=== PATIENT | male | born 1955 | race Caucasian/White ===

== ENCOUNTER 2017-05-15 09:30 | Outpatient (RCR) | payer MEDICARE, MEDICAID ==
[2016-07-21 15:45] VITALS: Wt 81.6 kg
[~2017-05-15 09:30] MED LIST: ACET-2043 PO; BACL-51 PO; BISA-236 RC; CALC-83; CALC1TAB58 PO; CALC200T27 PO; CALCIUM PO; CEPH-13 PO; CHOL100058 PO; CHOL100059 PO; CHOL200038 PO; CYCL-343 PO; DALFAM10PT PO; DEXTROSE 5%(*) 100 ML BAG 100 ML IVPB PRN; ESC10 PO; ESCI20TA38 PO; ESCI20TA8 PO; FURO-45 PO; FURO40TA35 PO; GABA-490 PO; GLEEVEC PO; IBUP200C71 PO; IMAT400PT GT; IMAT400PT PO; LEVO-85 PO; LIDO700A29 TD; LIDOCAINE/SOD BICARB 8.4% SYR ID PRN; LOPE2CAP88 PO; LOR5/325 PO; LORA-633 PO; LYRICA PO; MAGN100T PO; MAGN100T2 PO; MAGN400T52 PO; MELA3TAB31 PO; MELO-207 PO; MORINGA PO; NS(*) 0.9% 100 ML BAG 100 ML IVPB PRN; OMEG500C5 PO; OMEG500C7 PO; ONDA8TAB94 PO; PAN40 PO; PANT40TA65 PO; POTA-28 PO; POTA-53 PO; POTA20PA10 PO; PRAM1TAB PO; TERB250T74 PO; VITA1CAP46 PO; VITA400T2 PO; ZOLP-358 PO; ZOLP-360 PO; [UNRECOGNIZED DRUG - CODE] PO; [UNRECOGNIZED DRUG - OTHER] CO INTRATH; [UNRECOGNIZED DRUG - OTHER] PO
[2017-05-15 09:39] VITALS: BP 137/55
[2017-05-15] MEDS ORDERED: methylPREDNIS SUCC 125 MG/2ML IVP PRN (10:00)
[2017-05-15] MEDS ORDERED: diphenhydrAMINE 50 MG/ML VIAL IVP PRN (10:00)
[2017-05-15] MEDS ORDERED: ACETAMINOPHEN 500 MG TAB PO PRN (10:00)
[2017-05-15] MEDS ORDERED: OCRELIZUMAB 300 MG/10 ML SDV 600 MG in NS(*) 0.9% 500 ML BAG 500 ML IVPB ONE (11:00)
[2017-05-24] MEDS ORDERED: SULF-198 PO (05:39)
== END 2017-08-12 ==
LOC: SPU 09:30
PROVIDERS: ATTEND Internal Medicine Hematology
DX: G35 Multiple sclerosis (principal)
CPT/HCPCS: 96365; 96366; 96375; A9270; C9494; J1200; J2930; J7040; J7050

== ENCOUNTER 2017-05-24 03:16 | Emergency (ER) | payer MEDICARE, MEDICAID ==
[2016-07-21 15:45] VITALS: Ht 172.7 cm; Wt 81.6 kg
[~2017-05-24] VITALS: Ht 172.7 cm; Wt 81.6 kg
[~2017-05-24 03:16] MED LIST changes: -DEXTROSE 5%(*) 100 ML BAG 100 ML IVPB PRN; -LIDOCAINE/SOD BICARB 8.4% SYR ID PRN; -NS(*) 0.9% 100 ML BAG 100 ML IVPB PRN
--- NOTE | 2017-05-24 03:40 | ER Report ---
History and Physical Time Seen By MD: 03:27 Hx. of Stated Complaint: LEFT BIG TOE HAS INFECTION, IT IS REDDENED AND PAINFUL. HPI/ROS CHIEF COMPLAINT: toe infection HISTORY OF PRESENT ILLNESS: This is a 62 year old male with multiple sclerosis. He has been having toe pain ever since he injured it several weeks ago. It does not seem to be healing. He has muscle spasms and had injured it during an episode of severe spasms. It does not seem to be healing. There is increased drainage from the toe and is red as well. Feet and hands are always very cold. There has been question about circulation in the past. He usually sees Lexi Thomas for his primary care. He has had severe infections in the past requiring a month in the hospital on IV antibiotics and wanted to try to get ahead of this so the same does not happen now. He has no fevers now, but felt like he might have earlier tonight. He was referred to [facility] for further evaluation by Lexi. Allergies: Coded Allergies: Penicillins (Verified Allergy, Intermediate, HIVES, 05/24/17) Home Meds Active Scripts Sulfamethoxazole/Trimet 800-160 Mg Tab (BACTRIM DS TABLET) 1 Each Tablet, 1 TAB PO Q12H, #20 TAB 0 Refills Prov:VINICIUS MANCILLA MD 05/24/17 Imatinib Mesylate (GLEEVEC) 400 Mg Tab, 400 MG PO HS for 30 Days, #30 TAB 9 Refills Prov:PAYTON MONTEMAYOR-BC, ONC 04/03/17 Pantoprazole Sodium (PANTOPRAZOLE SODIUM) 40 Mg Tablet.dr, 40 MG PO QDAY, #30 TAB.SR Prov:PAYTON MONTEMAYOR-BC, ONC 03/31/17 Reported Medications Cholecalciferol (Vitamin D3) (VITAMIN D3) 2,000 Unit Tablet, 2000 UNIT PO BID 07/20/16 Pramipexole Di-Hcl (PRAMIPEXOLE DIHYDROCHLORIDE) 1 Mg Tablet, 1 MG PO HS 07/20/16 Potassium Chloride (POTASSIUM CHLORIDE) 10 Meq Tab.er.prt, 10 MEQ PO BID Y for low potassium 07/20/16 Meloxicam (MELOXICAM) 15 Mg Tablet, 15 MG PO QDAY 07/20/16 Melatonin (MELATONIN) 3 Mg Tablet, 3 MG PO HS 07/20/16 Magnesium Citrate (MAGNESIUM CITRATE) 100 Mg Tablet, 100 MG PO DAILY 07/20/16 Furosemide (FUROSEMIDE) 20 Mg Tablet, 1 TAB PO DAILY, TAB 07/20/16 Escitalopram Oxalate (ESCITALOPRAM OXALATE) 20 Mg Tablet, 20 MG PO QDAY 07/20/16 Calcium Citrate/Vitamin D3 (Calcium Citrate +Vit D3 Tablet) 200 Mg Calcium-250 Unit Tablet 07/20/16 Reviewed Nurses Notes: Yes Hx Smoking: Yes Smoking Status: Never Smoker Exposure to Second Hand Smoke?: No Hx Substance Use Disorder: No Hx Alcohol Use: Yes Constitutional Vital Sign - Last 24 Hours 05/24/17 05/24/17 05/24/17 03:22 05:37 05:40 Temp 98.2 Pulse 84 83 Resp 16 B/P (MAP) 116/90 121/77 (92) Pulse Ox 100 90 O2 Delivery Room Air Room Air Physical Exam General: Alert, no acute distress Skin: Cool to the touch throughout the foot. The left great toe is somewhat erythematous despite this. Sore on the dorsal toe over the toenail area that has breakdown and some drainage, but no purulence noted. Musculoskeletal: Diffuse pain in the toe. Pain with palpation from the interphalangeal joint and distally. Neuro: Painful to touch, otherwise normal sensation. Cardiovascular: Capillary refill with slight slowing, about 3 seconds. Medical Decision Making Data Points Result Diagram: 05/24/1740905/24/17409 Laboratory Hematology Test 05/24/17 04:10 Red Blood Count 4.65 M/uL (4.00-5.60) Mean Corpuscular Volume 98.4 fL (80.0-96.0) Mean Corpuscular Hemoglobin 33.5 pg (26.0-33.0) Mean Corpuscular Hemoglobin Concent 34.1 g/dL (32.0-36.0) Red Cell Distribution Width 16.4 % (11.5-14.5) Mean Platelet Volume 8.3 fL (7.2-11.1) Neutrophils (%) (Auto) 72.3 % (39.4-72.5) Lymphocytes (%) (Auto) 13.0 % (17.6-49.6) Monocytes (%) (Auto) 11.1 % (4.1-12.4) Eosinophils (%) (Auto) 2.9 % (0.4-6.7) Basophils (%) (Auto) 0.7 % (0.3-1.4) Nucleated RBC Relative Count (auto) 0.1 /100WBC Neutrophils # (Auto) 5.7 K/uL (2.0-7.4) Lymphocytes # (Auto) 1.0 K/uL (1.3-3.6) Monocytes # (Auto) 0.9 K/uL (0.3-1.0) Eosinophils # (Auto) 0.2 K/uL (0.0-0.5) Basophils # (Auto) 0.1 K/uL (0.0-0.1) Nucleated RBC Absolute Count (auto) 0.00 K/uL Erythrocyte Sedimentation Rate 6 mm/HOUR (0-20) Sodium Level 139 mmol/L (137-145) Potassium Level 3.8 mmol/L (3.5-5.0) Chloride Level 104 mmol/L (98-107) Carbon Dioxide Level 26 mmol/L (22-30) Blood Urea Nitrogen 14 mg/dl (9-21) Creatinine 1.00 mg/dl (0.66-1.25) Glomerular Filtration Rate Calc > 60.0 Random Glucose 99 mg/dl (75-110) Calcium Level 8.8 mg/dl (8.4-10.2) Total Bilirubin 0.5 mg/dl (0.2-1.3) Aspartate Amino Transf (AST/SGOT) 17 U/L (0-35) Alanine Aminotransferase (ALT/SGPT) 27 U/L (0-56) Alkaline Phosphatase 95 U/L (0-126) C-Reactive Protein 1.9 mg/dl (<1.0) Total Protein 6.2 gm/dl (6.3-8.2) Albumin 3.3 g/dl (3.5-5.0) Chemistry Test 05/24/17 04:10 White Blood Count 7.8 k/uL (4.5-11.0) Red Blood Count 4.65 M/uL (4.00-5.60) Hemoglobin 15.6 g/dL (14.0-18.0) Hematocrit 45.8 % (42.0-52.0) Mean Corpuscular Volume 98.4 fL (80.0-96.0) Mean Corpuscular Hemoglobin 33.5 pg (26.0-33.0) Mean Corpuscular Hemoglobin Concent 34.1 g/dL (32.0-36.0) Red Cell Distribution Width 16.4 % (11.5-14.5) Platelet Count 309 K/uL (150-450) Mean Platelet Volume 8.3 fL (7.2-11.1) Neutrophils (%) (Auto) 72.3 % (39.4-72.5) Lymphocytes (%) (Auto) 13.0 % (17.6-49.6) Monocytes (%) (Auto) 11.1 % (4.1-12.4) Eosinophils (%) (Auto) 2.9 % (0.4-6.7) Basophils (%) (Auto) 0.7 % (0.3-1.4) Nucleated RBC Relative Count (auto) 0.1 /100WBC Neutrophils # (Auto) 5.7 K/uL (2.0-7.4) Lymphocytes # (Auto) 1.0 K/uL (1.3-3.6) Monocytes # (Auto) 0.9 K/uL (0.3-1.0) Eosinophils # (Auto) 0.2 K/uL (0.0-0.5) Basophils # (Auto) 0.1 K/uL (0.0-0.1) Nucleated RBC Absolute Count (auto) 0.00 K/uL Erythrocyte Sedimentation Rate 6 mm/HOUR (0-20) Glomerular Filtration Rate Calc > 60.0 Calcium Level 8.8 mg/dl (8.4-10.2) Total Bilirubin 0.5 mg/dl (0.2-1.3) Aspartate Amino Transf (AST/SGOT) 17 U/L (0-35) Alanine Aminotransferase (ALT/SGPT) 27 U/L (0-56) Alkaline Phosphatase 95 U/L (0-126) C-Reactive Protein 1.9 mg/dl (<1.0) Total Protein 6.2 gm/dl (6.3-8.2) Albumin 3.3 g/dl (3.5-5.0) Microbiology Microbiology Date/Time Source Procedure Growth Status 05/24/17 04:10 Blood Blood Culture - Preliminary NO GROWTH AFTER 1 DAY, REINCUBATED Resulted 05/24/17 04:00 Blood Blood Culture - Preliminary NO GROWTH AFTER 1 DAY, REINCUBATED Resulted 05/24/17 03:37 Foot Left Gram Stain - Final Resulted 05/24/17 03:37 Wound Culture - Preliminary Gram Negative Karsten Resulted EKG/Imaging Imaging INDICATION: Left great toe infection. EXAM DATE: 05/24/2017 4:12 AM COMPARISON: None available at the time of dictation. FINDINGS: 3 views left great toe. Mineralization is normal. No acute alignment abnormality or fracture. Mild osteoarthrosis. No suspicious erosive/ destructive lesion. Soft tissues appear swollen. IMPRESSION: No apparent acute osseous abnormality of the left great toe. Report Dictated By: Jose Martin Hinojosa MD at 05/24/2017 4:36 AM ED Course/Re-evaluation ED Course Normal CBC and CMP. CRP mildly elevated and normal ESR. He has no signs of osteomyelitis on x-ray. Cultures pending. Will begin Bactrim DS twice daily for 10 days and have him follow-up with [facility] as he was planning. Decision to Disposition Date: May 24, 2017 Decision to Disposition Time: 05:36 Depart Departure Latest Vital Signs Vital Signs Date Time Temp Pulse Resp B/P (MAP) Pulse Ox O2 Delivery O2 Flow Rate FiO2 05/24/17 05:40 83 90 Room Air 05/24/17 05:37 121/77 (92) 05/24/17 03:22 98.2 16 Impression: Primary Impression: Cellulitis of great toe, left Condition: Improved Disposition: HOME OR SELF-CARE Referrals: LEXI THOMAS (PCP) New Scripts Sulfamethoxazole/Trimet 800-160 Mg Tab (BACTRIM DS TABLET) 1 Each Tablet 1 TAB PO Q12H, #20 TAB 0 Refills Prov: VINICIUS MANCILLA MD 05/24/17 Patient Instructions: Cellulitis (ED) Additional Instructions: Start the antibiotic Bactrim DS twice a day for 10 days. Call [facility] for an appointment. Call on Thursday morning to arrange this for this coming week. VINICIUS MANCILLA MD May 24, 2017 03:40
[2017-05-24 04:26] LABS: PLATELET COUNT, AUTOMATED 309 K/uL (150-450)
--- NOTE | 2017-05-24 04:42 | RADIOLOGY IMAGING REPORT ---
FACILITY: PATIENT NAME: Luciano Goldman : 1955 MR: [id number] V: [id number] EXAM DATE: ORDERING PHYSICIAN: VINICIUS MANCILLA TECHNOLOGIST: Location: [facility] Patient: Luciano Goldman : 1955 Visit/Account:[id number] Date of Sevice: 05/24/2017 INDICATION: Left great toe infection. EXAM DATE: 05/24/2017 4:12 AM COMPARISON: None available at the time of dictation. FINDINGS: 3 views left great toe. Mineralization is normal. No acute alignment abnormality or fracture. Mild o steoarthrosis. No suspicious erosive/destructive lesion. Soft tissues appear swollen. IMPRESSION: No apparent acute osseous abnormality of the left great toe. Report Dictated By: Jose Martin Hinojosa MD at 05/24/2017 4:36 AM Report E-Signed By: Jose Martin Hinojosa MD at 05/24/2017 4:37 AM WSN:[id number]
[2017-05-24] MEDS ORDERED: TRIMETH/SULFA DS 160-800MG TAB PO ONE (05:30)
[2017-05-24 05:37] VITALS: BP 121/77
[2017-05-24] MEDS ORDERED: SULF-198 PO (05:39)
== END 2017-05-24 06:00 | disposition home or self-care (01) ==
LOC: ER 04:03
DX: L03.032 Cellulitis of left toe (principal)
CPT/HCPCS: 36415; 73660; 85025; 85651; 86140; 87040; 87070; 87077; 87186; 87205; 99283; A9270; 82040; 82247; 82310; 82374; 82435; 82565; 82947; 84075; 84132; 84155; 84295; 84450; 84460; 84520

== ENCOUNTER → 2017-07-10 | Outpatient (REF) | payer MEDICARE, MEDICAID ==
[2016-07-21 15:45] VITALS: BMI 27.4
[~2017-07-10] MED LIST changes: +SULF-198 PO
== END ==
LOC: ZZSTITCHES 19:49
PROVIDERS: ATTEND Physician Assistant
DX: N39.0 Urinary tract infection, site not specified (principal); B96.5 Pseudomonas (aeruginosa) (mallei) (pseudomallei) as the cause of diseases classified elsewhere
CPT/HCPCS: 87077; 87088; 87186

== ENCOUNTER → 2017-08-06 | Outpatient (REF) | payer MEDICARE, MEDICAID ==
[2016-07-21 15:45] VITALS: BMI 27.4
== END ==
LOC: ZZSTITCHES 15:53
PROVIDERS: ATTEND Physician Assistant
DX: R60.9 Edema, unspecified (principal); R06.02 Shortness of breath; Z79.899 Other long term (current) drug therapy
CPT/HCPCS: 82310; 82374; 82435; 82565; 82947; 83880; 84132; 84295; 84520

== ENCOUNTER → 2017-08-13 | Outpatient (REF) | payer MEDICARE, MEDICAID ==
[2016-07-21 15:45] VITALS: BMI 27.4
== END ==
LOC: ZZSTITCHES 17:03
PROVIDERS: ATTEND Physician Assistant
DX: R60.9 Edema, unspecified (principal)
CPT/HCPCS: 82310; 82374; 82435; 82565; 82947; 84132; 84295; 84520

== ENCOUNTER 2017-08-25 22:45 | Inpatient (IN) | payer MEDICARE, MEDICAID ==
[~2017-08-25] VITALS: Ht 172.7 cm; Wt 88.5 kg
--- NOTE | 2017-08-25 23:01 | ER Report ---
History and Physical Time Seen By MD: 23:01 Hx. of Stated Complaint: vomiting/diarrhea HPI/ROS CHIEF COMPLAINT: weakness, nausea,vomiting and diarrhea HISTORY OF PRESENT ILLNESS: This is a 62 year old male. He is having nausea, vomiting and diarrhea for the last 48 hours. He is very weak. He has MS and lives alone, usually able to transfer himself from chair to his car or to the toilet. Very weak today. Ended up falling while transferring to the toilet and was unable to pick himself up. Thinks he was down for about 4 hours. He has a DISSOLVER OPERATOR that is able to come and help him, who eventually found him. He assisted to brink him here to the hospital. Diffuse discomfort in the abdomen. he has felt hot and cold, but no known fevers. He has been unable to keep any medicines down today. No shortness of breath or cough. No chest pain. Allergies: Coded Allergies: Penicillins (Verified Allergy, Intermediate, HIVES, 08/25/17) Home Meds Active Scripts Sulfamethoxazole/Trimet 800-160 Mg Tab (BACTRIM DS TABLET) 1 Each Tablet, 1 TAB PO Q12H, #20 TAB 0 Refills Prov:VINICIUS MANCILLA MD 05/24/17 Imatinib Mesylate (GLEEVEC) 400 Mg Tab, 400 MG PO HS for 30 Days, #30 TAB 9 Refills Prov:PAYTON MONTEMAYORP-BC, ONC 04/03/17 Pantoprazole Sodium (PANTOPRAZOLE SODIUM) 40 Mg Tablet.dr, 40 MG PO QDAY, #30 TAB.SR Prov:PAYTON MONTEMAYOR [employer]BER-BC, ONC 03/31/17 Reported Medications Cholecalciferol (Vitamin D3) (VITAMIN D3) 2,000 Unit Tablet, 2000 UNIT PO BID 07/20/16 Pramipexole Di-Hcl (PRAMIPEXOLE DIHYDROCHLORIDE) 1 Mg Tablet, 1 MG PO HS 07/20/16 Potassium Chloride (POTASSIUM CHLORIDE) 10 Meq Tab.er.prt, 10 MEQ PO BID Y for low potassium 07/20/16 Meloxicam (MELOXICAM) 15 Mg Tablet, 15 MG PO QDAY 07/20/16 Melatonin (MELATONIN) 3 Mg Tablet, 3 MG PO HS 07/20/16 Magnesium Citrate (MAGNESIUM CITRATE) 100 Mg Tablet, 100 MG PO DAILY 07/20/16 Furosemide (FUROSEMIDE) 20 Mg Tablet, 1 TAB PO DAILY, TAB 07/20/16 Escitalopram Oxalate (ESCITALOPRAM OXALATE) 20 Mg Tablet, 20 MG PO QDAY 07/20/16 Calcium Citrate/Vitamin D3 (Calcium Citrate +Vit D3 Tablet) 200 Mg Calcium-250 Unit Tablet 07/20/16 Reviewed Nurses Notes: Yes Hx Smoking: Yes Smoking Status: Never Smoker Exposure to Second Hand Smoke?: No Hx Substance Use Disorder: No Hx Alcohol Use: Yes Constitutional Vital Sign - Last 24 Hours 08/25/17 08/25/17 08/25/17 08/25/17 22:50 23:00 23:15 23:30 Temp 99.4 Pulse 98 94 90 93 Resp 18 B/P (MAP) 109/72 106/73 (84) 112/68 (83) Pulse Ox 95 95 94 90 O2 Delivery Room Air 08/25/17 08/26/17 08/26/17 08/26/17 23:45 00:00 00:15 00:30 Pulse 102 ??? 93 ??? B/P (MAP) 107/57 (74) 98/65 (76) Pulse Ox 92 86 90 Physical Exam General Appearance: The patient is alert. No acute distress. Eyes: Pupils are equal, round. No pallor, injection or icterus. ENT: Mucous membranes are a little dry. Otherwise normal oral mucosa. Posterior oropharynx is normal. Has cerumen in ear canals. no erythema. Neck: Supple and non tender. Respiratory: Lungs are clear to auscultation. Cardiovascular: Regular rate and rhythm. No murmurs, gallops or rubs. Gastrointestinal: Abdomen is soft and non tender, a little distended. No rebound or guarding. Normal bowel sounds. No costovertebral angle tenderness with percussion. Neurological: Alert and oriented x3. Weak and tremulous. Skin: Warm and dry. DIFFERENTIAL DIAGNOSIS: After history and physical exam, differential diagnosis was considered for nausea, vomiting and diarrhea with history of MS, now very weak and unable to care for himself fully like he usually does. Medical Decision Making Data Points Result Diagram: 08/25/17220408/25/172204 Laboratory Hematology Test 08/25/17 22:05 08/25/17 23:05 08/25/17 23:41 Red Blood Count 4.39 M/uL (4.00-5.60) Mean Corpuscular Volume 103.1 fL (80.0-96.0) Mean Corpuscular Hemoglobin 35.8 pg (26.0-33.0) Mean Corpuscular Hemoglobin Concent 34.7 g/dL (32.0-36.0) Red Cell Distribution Width 14.5 % (11.5-14.5) Mean Platelet Volume 9.1 fL (7.2-11.1) Neutrophils (%) (Auto) 81.5 % (39.4-72.5) Lymphocytes (%) (Auto) 7.9 % (17.6-49.6) Monocytes (%) (Auto) 8.7 % (4.1-12.4) Eosinophils (%) (Auto) 1.7 % (0.4-6.7) Basophils (%) (Auto) 0.2 % (0.3-1.4) Nucleated RBC Relative Count (auto) 0.0 /100WBC Neutrophils # (Auto) 7.3 K/uL (2.0-7.4) Lymphocytes # (Auto) 0.7 K/uL (1.3-3.6) Monocytes # (Auto) 0.8 K/uL (0.3-1.0) Eosinophils # (Auto) 0.1 K/uL (0.0-0.5) Basophils # (Auto) 0.0 K/uL (0.0-0.1) Nucleated RBC Absolute Count (auto) 0.00 K/uL Sodium Level 143 mmol/L (137-145) Potassium Level 3.0 mmol/L (3.5-5.0) Chloride Level 100 mmol/L (98-107) Carbon Dioxide Level 26 mmol/L (22-30) Blood Urea Nitrogen 17 mg/dl (9-21) Creatinine 1.30 mg/dl (0.66-1.25) Glomerular Filtration Rate Calc 56.1 Random Glucose 90 mg/dl (75-110) Calcium Level 8.4 mg/dl (8.4-10.2) Magnesium Level 1.7 mg/dl (1.7-2.2) Total Bilirubin 0.7 mg/dl (0.2-1.3) Aspartate Amino Transf (AST/SGOT) 59 U/L (0-35) Alanine Aminotransferase (ALT/SGPT) 33 U/L (0-56) Alkaline Phosphatase 86 U/L (0-126) Total Protein 6.6 gm/dl (6.3-8.2) Albumin 3.7 g/dl (3.5-5.0) Total Creatine Kinase 778 U/L (55-170) Urine Color Mary Urine Clarity Cloudy Urine pH 5.0 pH (4.8-9.5) Urine Specific [place] 1.024 Urine Protein 30 mg/dL (NEGATIVE) Urine Glucose (UA) Negative mg/dL (NEGATIVE) Urine Ketones Negative mg/dL (NEGATIVE) Urine Blood Small (NEGATIVE) Urine Nitrite Negative (NEGATIVE) Urine Bilirubin Negative (NEGATIVE) Urine Urobilinogen Negative mg/dL (0.2-1.9) Urine Leukocyte Esterase Moderate (NEGATIVE) Urine RBC 34 /HPF (0-2/HPF) Urine WBC 346 /HPF (0-5/HPF) Urine Squamous Epithelial Cells None /LPF (NONE-FEW) Urine Bacteria Many /HPF (NONE-FEW) Urine Mucus Few /HPF (NONE-FEW) Chemistry Test 08/25/17 22:05 08/25/17 23:05 08/25/17 23:41 White Blood Count 8.9 k/uL (4.5-11.0) Red Blood Count 4.39 M/uL (4.00-5.60) Hemoglobin 15.7 g/dL (14.0-18.0) Hematocrit 45.2 % (42.0-52.0) Mean Corpuscular Volume 103.1 fL (80.0-96.0) Mean Corpuscular Hemoglobin 35.8 pg (26.0-33.0) Mean Corpuscular Hemoglobin Concent 34.7 g/dL (32.0-36.0) Red Cell Distribution Width 14.5 % (11.5-14.5) Platelet Count 271 K/uL (150-450) Mean Platelet Volume 9.1 fL (7.2-11.1) Neutrophils (%) (Auto) 81.5 % (39.4-72.5) Lymphocytes (%) (Auto) 7.9 % (17.6-49.6) Monocytes (%) (Auto) 8.7 % (4.1-12.4) Eosinophils (%) (Auto) 1.7 % (0.4-6.7) Basophils (%) (Auto) 0.2 % (0.3-1.4) Nucleated RBC Relative Count (auto) 0.0 /100WBC Neutrophils # (Auto) 7.3 K/uL (2.0-7.4) Lymphocytes # (Auto) 0.7 K/uL (1.3-3.6) Monocytes # (Auto) 0.8 K/uL (0.3-1.0) Eosinophils # (Auto) 0.1 K/uL (0.0-0.5) Basophils # (Auto) 0.0 K/uL (0.0-0.1) Nucleated RBC Absolute Count (auto) 0.00 K/uL Glomerular Filtration Rate Calc 56.1 Calcium Level 8.4 mg/dl (8.4-10.2) Magnesium Level 1.7 mg/dl (1.7-2.2) Total Bilirubin 0.7 mg/dl (0.2-1.3) Aspartate Amino Transf (AST/SGOT) 59 U/L (0-35) Alanine Aminotransferase (ALT/SGPT) 33 U/L (0-56) Alkaline Phosphatase 86 U/L (0-126) Total Protein 6.6 gm/dl (6.3-8.2) Albumin 3.7 g/dl (3.5-5.0) Total Creatine Kinase 778 U/L (55-170) Urine Color Mary Urine Clarity Cloudy Urine pH 5.0 pH (4.8-9.5) Urine Specific [place] 1.024 Urine Protein 30 mg/dL (NEGATIVE) Urine Glucose (UA) Negative mg/dL (NEGATIVE) Urine Ketones Negative mg/dL (NEGATIVE) Urine Blood Small (NEGATIVE) Urine Nitrite Negative (NEGATIVE) Urine Bilirubin Negative (NEGATIVE) Urine Urobilinogen Negative mg/dL (0.2-1.9) Urine Leukocyte Esterase Moderate (NEGATIVE) Urine RBC 34 /HPF (0-2/HPF) Urine WBC 346 /HPF (0-5/HPF) Urine Squamous Epithelial Cells None /LPF (NONE-FEW) Urine Bacteria Many /HPF (NONE-FEW) Urine Mucus Few /HPF (NONE-FEW) Urinalysis Test 08/25/17 23:41 Urine Color Mary Urine Clarity Cloudy Urine pH 5.0 pH (4.8-9.5) Urine Specific [place] 1.024 Urine Protein 30 mg/dL (NEGATIVE) Urine Glucose (UA) Negative mg/dL (NEGATIVE) Urine Ketones Negative mg/dL (NEGATIVE) Urine Blood Small (NEGATIVE) Urine Nitrite Negative (NEGATIVE) Urine Bilirubin Negative (NEGATIVE) Urine Urobilinogen Negative mg/dL (0.2-1.9) Urine Leukocyte Esterase Moderate (NEGATIVE) Urine RBC 34 /HPF (0-2/HPF) Urine WBC 346 /HPF (0-5/HPF) Urine Squamous Epithelial Cells None /LPF (NONE-FEW) Urine Bacteria Many /HPF (NONE-FEW) Urine Mucus Few /HPF (NONE-FEW) EKG/Imaging Imaging OBSTRUCTION SERIES: Indication: Nausea and vomiting. Technique: Supine and erect views of the abdomen and a frontal view of the chest were obtained. Comparison: None. Findings: The intestinal gas pattern is unremarkable. There is no evidence of obstruction, dilatation, or free air. No suspicious calcifications are identified. There are unremarkable postoperative changes in the lower lumbar spine. Scoliosis and degenerative changes are present in the upper lumbar spine. A neurostimulator is present in the lower thoracic spinal canal. The chest film demonstrates well-expanded and clear lungs. The heart and mediastinal contours are within normal limits. IMPRESSION: No evidence of obstruction or other acute process. Report Dictated By: Gerardo Ahumada MD at 08/25/2017 11:54 PM ED Course/Re-evaluation Clinical Indication for ER IV: Hydration, IV Access ED Course Labs were obtained and an IV was started. The patient was given a liter of normal saline. Some Zofran helped with nausea. He is feeling a little bit better. I discussed the lab results which show a urinary tract infection. I called and spoke with Dr. Alejandra who will admit the patient. We did look back at old cultures and based on old cultures showing Pseudomonas and staph, we did go ahead and choose Levaquin. Blood cultures will be obtained prior to antibiotics being started any urine culture will be obtained as well. Decision to Disposition Date: Aug 26, 2017 Decision to Disposition Time: 00:30 Depart Departure Latest Vital Signs Vital Signs Date Time Temp Pulse Resp B/P (MAP) Pulse Ox O2 Delivery O2 Flow Rate FiO2 08/26/17 00:30 ??? 98/65 (76) 08/26/17 00:15 90 08/25/17 22:50 99.4 18 Room Air Impression: Primary Impression: UTI (urinary tract infection) Additional Impressions: Weakness Hypokalemia Dehydration Condition: Condition Unchanged Disposition: Admitted from ER Referrals: LEXI GUARDADO (PCP) Problem Qualifiers Primary Impression: UTI (urinary tract infection) Urinary tract infection type: acute cystitis Hematuria presence: without hematuria Qualified Codes: N30.00 - Acute cystitis without hematuria VINICIUS MANCILLA MD Aug 25, 2017 23:01
[2017-08-25] MEDS ORDERED: NS(*) 0.9% 1000 ML BAG 1,000 ML IV ONE (23:15)
[2017-08-25] MEDS ORDERED: ONDANSETRON 4 MG/2 ML VIAL IVP ONE (23:15)
[2017-08-25 23:25] LABS: PLATELET COUNT, AUTOMATED 271 K/uL (150-450)
--- NOTE | 2017-08-26 00:06 | RADIOLOGY IMAGING REPORT ---
FACILITY: [facility] PATIENT NAME: Luciano Goldman : 1955 MR: [id number] V: [id number] EXAM DATE: ORDERING PHYSICIAN: VINICIUS MANCILLA TECHNOLOGIST: Location: [facility] Patient: Luciano Goldman : 1955 Visit/Account:[id number] Date of Sevice: 08/25/2017 OBSTRUCTION SERIES: Indication: Nausea and vomiting. Technique: Supine and erect views of the abdomen and a frontal view of the chest were obtained. Comparison: None. Findings: The intestinal gas pattern is unremarkable. There is no evidence of obstruction, dilatation , or free air. No suspicious calcifications are identified. There are unremarkable postoperative luna ges in the lower lumbar spine. Scoliosis and degenerative changes are present in the upper lumbar spi ne. A neurostimulator is present in the lower thoracic spinal canal. The chest film demonstrates well-expanded and clear lungs. The heart and mediastinal contours are wit hin normal limits. IMPRESSION: No evidence of obstruction or other acute process. Report Dictated By: Gerardo Ahumada MD at 08/25/2017 11:54 PM Report E-Signed By: Gerardo Ahumada MD at 08/26/2017 12:01 AM WSN:[id number]
[2017-08-26] MEDS ORDERED: LEVOFLOXACIN/D5W 750 MG/150 ML 150 ML IVPB ONE (00:30)
[2017-08-26 01:27] VITALS: BP 109/70
[2017-08-26] MEDS ORDERED: KCL 2 MEQ/ML 20 MEQ/10 ML VIAL 20 MEQ in NS(*) 0.9% 1000 ML BAG 1,000 ML IV PRN (02:17)
[2017-08-26] MEDS ORDERED: INFLUENZA VIRUS VAC 0.5 ML SYR IM ONLY ONE (02:20)
[2017-08-26] MEDS ORDERED: ACETAMINOPHEN 325 MG TAB PO PRN (02:20)
[2017-08-26] MEDS ORDERED: PROMETHAZINE 25 MG/ML 1 ML AMP IVP PRN (02:25)
--- NOTE | 2017-08-26 02:54 | History & Physical ---
History of Present Illness Chief Complaint Weakness History of Present Illness 62yo male with PMHx significant for MS, CML (on Gleevec), neurogenic bladder with suprapubic cath. He reports nausea, vomiting, and diarrhea for approximately 36-48 hours. He denies any abdominal pain. He has not appreciated any bloody or black emesis/stools. He reports some sensation of fever, but no chills. He denies any known exposure to questionable food/fluids. He is not aware of anyone around him with similar symptoms. He states he began to feel much weaker and was unable to do his usual transfers from his wheelchair. He fell in the bathroom this evening and was unable to get up. His home health aide found him and he was brought to the ER. His evaluation revealed possible UTI as well as dehydration and hypokalemia. He was recommended for admission. History Problems: (1) Presence of suprapubic catheter Status: Chronic (2) CML (chronic myeloid leukemia) Status: Chronic (3) Multiple sclerosis Status: Chronic (4) UTI (urinary tract infection) Status: Acute Home Meds Active Scripts Sulfamethoxazole/Trimet 800-160 Mg Tab (BACTRIM DS TABLET) 1 Each Tablet, 1 TAB PO Q12H, #20 TAB 0 Refills Prov:VINICIUS MANCILLA MD 05/24/17 Imatinib Mesylate (GLEEVEC) 400 Mg Tab, 400 MG PO HS for 30 Days, #30 TAB 9 Refills Prov:PAYTON MONTEMAYOR-JESSENIA, ONC 04/03/17 Pantoprazole Sodium (PANTOPRAZOLE SODIUM) 40 Mg Tablet.dr, 40 MG PO QDAY, #30 TAB.SR Prov:PAYTON MONTEMAYOR-JESSENIA, ONC 03/31/17 Reported Medications Cholecalciferol (Vitamin D3) (VITAMIN D3) 2,000 Unit Tablet, 2000 UNIT PO BID 07/20/16 Pramipexole Di-Hcl (PRAMIPEXOLE DIHYDROCHLORIDE) 1 Mg Tablet, 1 MG PO HS 07/20/16 Potassium Chloride (POTASSIUM CHLORIDE) 10 Meq Tab.er.prt, 10 MEQ PO BID Y for low potassium 07/20/16 Meloxicam (MELOXICAM) 15 Mg Tablet, 15 MG PO QDAY 07/20/16 Melatonin (MELATONIN) 3 Mg Tablet, 3 MG PO HS 07/20/16 Magnesium Citrate (MAGNESIUM CITRATE) 100 Mg Tablet, 100 MG PO DAILY 07/20/16 Furosemide (FUROSEMIDE) 20 Mg Tablet, 1 TAB PO DAILY, TAB 07/20/16 Escitalopram Oxalate (ESCITALOPRAM OXALATE) 20 Mg Tablet, 20 MG PO QDAY 07/20/16 Calcium Citrate/Vitamin D3 (Calcium Citrate +Vit D3 Tablet) 200 Mg Calcium-250 Unit Tablet 07/20/16 Allergies: Coded Allergies: Penicillins (Verified Allergy, Intermediate, HIVES, 08/25/17) 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 Blood clots CHILD Blood disorder CHILD No significant family history FATHER, Age:83 BROTHER OR SISTER BROTHER OR SISTER BROTHER OR SISTER CHILD CHILD Hx Smoking: No Smoking Status: Never Smoker Exposure to Second Hand Smoke?: No Tobacco Used: Smokeless Caffeine Intake: Tea, Soda Caffeine/Cups Per Day: 2 cups/day Hx Alcohol Use: Yes Alcohol Used: Beer Hx Substance Use Disorder: No History of IV Drug Use: No Review of Systems Constitutional: Fever, No Chills, No Night Sweats Neurological: Weakness Eyes: No Vision Change Cardiovascular: No Chest Pain Respiratory: No Shortness of Breath, No Cough Gastrointestinal: Nausea, Vomiting, Diarrhea, No Hematemesis, No Hematochezia, No Melena, No Abdominal Pain Exam Vital Signs Vital Signs Date Time Temp Pulse Resp B/P (MAP) Pulse Ox O2 Delivery O2 Flow Rate FiO2 08/26/17 01:27 91 Nasal Cannula 0.5 08/26/17 01:27 98.1 85 16 109/70 (83) General Appearance: Alert, Awake Neuro: Other (significant weakness and spasticity of both lower extremities) Eyes: PERRLA ENT: Oropharynx Clear Cardiovascular: Regular Rate and Rhythm Respiratory: Clear to Auscultation Chest: No Tenderness GI: Abd Soft and Non-Tender, Other (baclofen pump RLQ) : Other (suprapubic cath site is clean/no drainage) Extremities: Warm, Perfused, Edema Integumentary: Other (no obvious skin lesions) Medical Decision Making Data Points Result Diagram: 08/25/17220408/25/172204 Item Value Date Time Albumin 3.7 g/dl 08/25/172204 Total Protein 6.6 gm/dl 08/25/172204 Total Creatine Kinase 778 U/L H 08/25/172304 Alkaline Phosphatase 86 U/L 08/25/172204 Alanine Aminotransferase (ALT/SGPT) 33 U/L 08/25/172204 Aspartate Amino Transf (AST/SGOT) 59 U/L H 08/25/172204 Total Bilirubin 0.7 mg/dl 08/25/172204 Magnesium Level 1.7 mg/dl 08/25/172204 Calcium Level 8.4 mg/dl 08/25/172204 Urine Color Mary 08/25/17 2341 Urine Clarity Cloudy 08/25/17 2341 Urine pH 5.0 pH 08/25/17 2341 Urine Specific [place] 1.024 08/25/171 Urine Protein 30 mg/dL 08/25/171 Urine Glucose (UA) Negative mg/dL 08/25/171 Urine Ketones Negative mg/dL 08/25/17 2341 Urine Blood Small 08/25/171 Urine Nitrite Negative 08/25/17 2341 Urine Bilirubin Negative 08/25/171 Urine Urobilinogen Negative mg/dL 08/25/17 2341 Urine Leukocyte Esterase Moderate H 08/25/17 2341 Urine RBC 34 /HPF 08/25/17 2341 Urine WBC 346 /HPF 08/25/17 2341 Urine Squamous Epithelial Cells None /LPF 08/25/17 2341 Urine Bacteria Many /HPF H 08/25/17 2341 Urine Mucus Few /HPF 08/25/17 2341 EKG / Imaging Imaging PATIENT NAME: Luciano Goldman : 1955 MR: [id number] V: [id number] EXAM DATE: ORDERING PHYSICIAN: VINICIUS MANCILLA TECHNOLOGIST: Location: [facility] [place] Patient: Luciano Goldman : 1955 Visit/Account:[id number] Date of Sevice: 08/25/2017 OBSTRUCTION SERIES: Indication: Nausea and vomiting. Technique: Supine and erect views of the abdomen and a frontal view of the chest were obtained. Comparison: None. Findings: The intestinal gas pattern is unremarkable. There is no evidence of obstruction, dilatation, or free air. No suspicious calcifications are identified. There are unremarkable postoperative changes in the lower lumbar spine. Scoliosis and degenerative changes are present in the upper lumbar spine. A neurostimulator is present in the lower thoracic spinal canal. The chest film demonstrates well-expanded and clear lungs. The heart and mediastinal contours are within normal limits. IMPRESSION: No evidence of obstruction or other acute process. Report Dictated By: Gerardo Ahumada MD at 08/25/2017 11:54 PM Report E-Signed By: Gerardo Ahumada MD at 08/26/2017 12:01 AM [id number] Assessment and Plan Problems: (1) UTI (urinary tract infection) Status: Acute Assessment & Plan: It appears he may have an acute UTI secondary to his suprapubic cath. Cultures of urine and blood have been obtained. Based on previous culture results, he has been started on IV Levaquin. He is also due to have his cath changed. (2) Nausea, vomiting, and diarrhea Status: Acute Assessment & Plan: He may have an acute gastroenteritis vs. side effects of his Gleevec vs. related to the UTI. Will give IV antiemetics as needed and gentle IV fluids. Check stool studies. Watch closely. (3) Dehydration Status: Acute Assessment & Plan: Due to N/V/D. Will give gentle IV fluids. Watch labs. (4) Hypokalemia Status: Acute Assessment & Plan: Will replace with IV fluids. Watch labs. (5) Multiple sclerosis Status: Chronic Assessment & Plan: He appears to have an acute exacerbation most likely related to the acute problems. Will treat the UTI and GI symptoms. He has a baclofen pump in place. He has also been on Ampyra - will hold as it can be associated with UTI. Monitor closely. (6) CML (chronic myeloid leukemia) Status: Chronic Assessment & Plan: He has been on Gleevec under Dr. Buddy Sorto's care. Will hold for now as it could contribute to his GI symptoms. Venous Thromboembolism Antithrombotics Is Pt On Any Antithrombotics?: Yes Exam Sepsis Risk: No Definite Risk Problem Qualifiers (1) UTI (urinary tract infection): Urinary tract infection type: acute cystitis Hematuria presence: without hematuria Qualified Codes: N30.00 - Acute cystitis without hematuria DEBRA GLEZ MD Aug 26, 2017 02:54
[2017-08-26] MEDS ORDERED: KCL/NS* 20 MEQ/1000 ML PREMIX 1,000 ML IV ONE (03:22)
[2017-08-26 05:48] VITALS: BP 93/55
[2017-08-26 07:10] LABS: PLATELET COUNT, AUTOMATED 214 K/uL (150-450)
[2017-08-26] MEDS ORDERED: KCL/NS* 20 MEQ/1000 ML PREMIX 1,000 ML IV PRN (07:15)
[2017-08-26 07:27] VITALS: BP 110/69
[2017-08-26] MEDS ORDERED: CALCIUM CARBONATE/VITAMIN D3 PO SCH (08:00)
[2017-08-26] MEDS ORDERED: PANTOPRAZOLE SOD 40 MG TABEC PO SCH (09:00)
[2017-08-26] MEDS ORDERED: ESCITALOPRAM OXALATE 10 MG TAB PO SCH (09:00)
[2017-08-26] MEDS ORDERED: ENOXAPARIN 40 MG/0.4ML SYR SC SCH (09:00)
[2017-08-26] MEDS ORDERED: LEVO250T55 PO (10:44)
--- NOTE | 2017-08-26 10:48 | Hospitalist Depart ---
Discharge Summary Reason for Hosp/Final Diag: (1) UTI (urinary tract infection) Status: Acute Hospital Course & Plan: His urine was positive for leukocytes, but he was afebrile and his WBC was normal. He received empiric treatment with IV levofloxacin, but has now been converted to oral treatment. (2) Nausea, vomiting, and diarrhea Status: Acute Hospital Course & Plan: Resolved. (3) Dehydration Status: Acute Hospital Course & Plan: Resolved with IV fluids. (4) Hypokalemia Status: Acute Hospital Course & Plan: Improving with supplementation. (5) Multiple sclerosis Status: Chronic Hospital Course & Plan: He has a baclofen pump in place and has also been on Ampyra. (6) CML (chronic myeloid leukemia) Status: Chronic Hospital Course & Plan: He has been on Gleevec under Dr. Buddy Sorto's care. Departure Latest Vital Signs Vital Signs 08/26/17 08/26/17 05:48 07:27 Temp 97.6 Pulse 77 Resp 20 B/P (MAP) 110/69 (83) Pulse Ox 91 O2 Delivery Room Air O2 Flow Rate 0.5 Weight (Pounds): 195 Result Diagram: 08/26/1757 08/26/1757 Condition: Improved Discharge: Home, Home Health Discharge Instructions Home Meds Active Scripts Levofloxacin 250 Mg Tab (LEVAQUIN 250 MG TAB) 250 Mg Tablet, 250 MG PO QDAY, #3 TAB Prov:HARSH TOMPKINS DO 08/26/17 Imatinib Mesylate (GLEEVEC) 400 Mg Tab, 400 MG PO HS for 30 Days, #30 TAB 9 Refills Prov:PAYTON MONTEMAYOR-JESSENIA, ONC 04/03/17 Pantoprazole Sodium (PANTOPRAZOLE SODIUM) 40 Mg Tablet.dr, 40 MG PO QDAY, #30 TAB.SR Prov:PAYTON MONTEMAYOR-BC, ONC 03/31/17 Reported Medications Cholecalciferol (Vitamin D3) (VITAMIN D3) 2,000 Unit Tablet, 2000 UNIT PO BID 07/20/16 Pramipexole Di-Hcl (PRAMIPEXOLE DIHYDROCHLORIDE) 1 Mg Tablet, 1 MG PO HS 07/20/16 Potassium Chloride (POTASSIUM CHLORIDE) 10 Meq Tab.er.prt, 10 MEQ PO BID Y for low potassium 07/20/16 Meloxicam (MELOXICAM) 15 Mg Tablet, 15 MG PO QDAY 07/20/16 Melatonin (MELATONIN) 3 Mg Tablet, 3 MG PO HS 07/20/16 Magnesium Citrate (MAGNESIUM CITRATE) 100 Mg Tablet, 100 MG PO DAILY 07/20/16 Furosemide (FUROSEMIDE) 20 Mg Tablet, 1 TAB PO DAILY, TAB 07/20/16 Escitalopram Oxalate (ESCITALOPRAM OXALATE) 20 Mg Tablet, 20 MG PO QDAY 07/20/16 Calcium Citrate/Vitamin D3 (Calcium Citrate +Vit D3 Tablet) 200 Mg Calcium-250 Unit Tablet 07/20/16 Discontinued Scripts Sulfamethoxazole/Trimet 800-160 Mg Tab (BACTRIM DS TABLET) 1 Each Tablet, 1 TAB PO Q12H, #20 TAB 0 Refills Prov:VINICIUS MANCILLA MD 05/24/17 Diet: Regular Activity: As Tolerated Venous Thromboembolism Antithrombotics Is Pt On Any Antithrombotics?: Yes Problem Qualifiers (1) UTI (urinary tract infection): Urinary tract infection type: acute cystitis Hematuria presence: without hematuria Qualified Codes: N30.00 - Acute cystitis without hematuria HARSH TOMPKINS DO Aug 26, 2017 10:48
[2017-08-26 11:07] VITALS: BP 120/72
[2017-08-26 16:19] VITALS: Ht 172.7 cm; Wt 88.5 kg
[2017-08-26] MEDS ORDERED: PRAMIPEXOLE DIHYDROCHL 0.25 MG PO SCH (21:00)
[2017-08-26] MEDS ORDERED: LEVOFLOXACIN/D5W*500 MG/100 ML 100 ML IVPB SCH (23:30)
== END 2017-08-26 14:10 | disposition home health service (06) | DRG 690 ==
LOC: ER 23:16 → MED 08-26 00:41
PROVIDERS: ADMIT Internal Medicine; ATTEND Internal Medicine
DX: N30.00 Acute cystitis without hematuria (principal); C92.10 Chronic myeloid leukemia, BCR/ABL-positive, not having achieved remission; E86.0 Dehydration; E87.6 Hypokalemia; G35 Multiple sclerosis; N31.9 Neuromuscular dysfunction of bladder, unspecified; W05.0XXA Fall from non-moving wheelchair, initial encounter; Z88.0 Allergy status to penicillin; Y92.002 Bathroom of unspecified non-institutional (private) residence as the place of occurrence of the external cause; Y99.8 Other external cause status; Z99.3 Dependence on wheelchair; Z96.0 Presence of urogenital implants; Z98.1 Arthrodesis status
CPT/HCPCS: 36415; 74022; 81001; 82040; 82247; 82310; 82374; 82435; 82550; 82565; 82947; 83735; 84075; 84132; 84155; 84295; 84450; 84460; 84520; 85025; 87040; 87088; 96361; 96365; 96375; 97166; 99285; J1650; J1956; J2405; J3480; J7030

== ENCOUNTER → 2017-09-03 | Outpatient (CLI) | payer MEDICARE, MEDICAID ==
[2017-08-26 16:19] VITALS: BMI 29.6
[~2017-09-03] MED LIST changes: +LEVO250T55 PO; +MELA5TAB6 PO; +NABU-1 PO; +OMEP40CA48 PO; +[UNRECOGNIZED DRUG - CODE] IT
== END ==
LOC: LAB 11:51
PROVIDERS: ATTEND Emergency Medicine
DX: E87.6 Hypokalemia (principal); R74.8 Abnormal levels of other serum enzymes; E53.8 Deficiency of other specified B group vitamins; M81.0 Age-related osteoporosis without current pathological fracture; E66.3 Overweight
CPT/HCPCS: 36415; 82306; 82310; 82374; 82435; 82465; 82565; 82607; 82947; 83090; 83540; 83550; 83718; 83921; 84132; 84295; 84478; 84520

== ENCOUNTER → 2017-09-17 | Outpatient (CLI) | payer MEDICARE, MEDICAID ==
[2017-08-26 16:19] VITALS: BMI 29.6
[2017-09-17 14:37] LABS: PLATELET COUNT, AUTOMATED 412 K/uL (150-450)
== END ==
LOC: LAB 13:58
PROVIDERS: ATTEND Emergency Medicine
DX: D64.9 Anemia, unspecified (principal); R79.89 Other specified abnormal findings of blood chemistry; E16.2 Hypoglycemia, unspecified
CPT/HCPCS: 36415; 82010; 82310; 82374; 82435; 82565; 82947; 84132; 84206; 84295; 84520; 85025

== ENCOUNTER → 2017-09-18 | Outpatient (CLI) | payer MEDICARE, MEDICAID ==
[2017-08-26 16:19] VITALS: BMI 29.6
== END ==
LOC: LAB 09:43
PROVIDERS: ATTEND Emergency Medicine
DX: E16.2 Hypoglycemia, unspecified (principal); D64.9 Anemia, unspecified
CPT/HCPCS: 36415; 82274; 82947; 83525; 84681; 86337

== ENCOUNTER → 2017-10-07 | Outpatient (CLI) | payer MEDICARE, MEDICAID ==
[2017-08-26 16:19] VITALS: BMI 29.6
--- NOTE | 2017-10-07 16:02 | RADIOLOGY IMAGING REPORT ---
FACILITY: [facility] PATIENT NAME: Luciano Goldman : 1955 MR: [id number] V: [id number] EXAM DATE: ORDERING PHYSICIAN: JC MEEHAN TECHNOLOGIST: Location: [facility] [place] Patient: Luciano Goldman : 1955 Visit/Account:[id number] Date of Sevice: 10/07/2017 DEXA Scan Clinical history: Screening. Comparison: 08/27/2009 on the right hip and 04/11/2011 the left hip. HIP: Bone mineral density (BMD) measured in the right Total Hip region correlates with a Z-score of -2.6 a nd a T-score of -3.0. The T-score of the femoral neck is -2.7. The lower of the two T-scores is osteoporotic as defined by the World Health Organizatio n. The corresponding risk of fracture in the hip is significantly increased approximately eight old fold compared with a young adult reference population. This value has increased by 9.3 % since the p rior study. More than 5% change is considered significant. Bone mineral density (BMD) measured in the right Femoral Neck region measures 0.715 g/cm?. HIP: Bone mineral density (BMD) measured in the Left Total Hip region correlates with a Z-score of -2.7 an d a T-score of -3.1. The T-score of the femoral neck is -2.6. The lower of the two T-scores is osteoporotic as defined by the World Health Organizatio n. The corresponding risk of fracture in the hip is significantly increased approximately eight fold compared with a young adult reference population. This value has decreased by 3.2 % since the prior study. More than 5% change is considered significant. Bone mineral density (BMD) measured in the Left Femoral Neck region measures 0.738 g/cm?. IMPRESSION: 1. Right Total Hip: Osteoporotic. There has been significant increase in the bone mineral density s alexei the previous exam 2. Left Total Hip: Left. There has been osteoporotic in the bone mineral density since the previous exam. There is been no significant change in bone mineral density since the previous exam. The next DEXA scan of this patient should include the following sites: L1-L4 and bilateral hips FRAX? WHO Fracture Risk Assessment Tool link: <http://www.shef.ac.uk/FRAX/tool.jsp?[email or web address]> PLEASE NOTE: 1) The World Health Organization defines low BMD as follows: T-score Normal > -1 Osteopenia < -1 and > -2.5 Osteoporosis < -2.5 without fractures Established osteoporosis < -2.5 with fractures 2) In general, you may wish to consider: Diagnosis Treatment Follow-up DEXA Normal BMD Prevention 2-3 years Osteopenia Prevention/therapy 1-2 years Osteoporosis Therapy Yearly 3) Fracture risk estimated from the T-score is more accurate for vertebral fractures (often spontane ous) than for hip fractures. Report Dictated By: Aiden Campos MD at 10/07/2017 3:46 PM Report E-Signed By: Aiden aCmpos MD at 10/07/2017 3:58 PM [id number]
== END ==
LOC: RAD 01:20
PROVIDERS: ATTEND Emergency Medicine
DX: Z13.820 Encounter for screening for osteoporosis (principal); M81.0 Age-related osteoporosis without current pathological fracture
CPT/HCPCS: 77080

== ENCOUNTER → 2017-11-12 | Outpatient (CLI) | payer MEDICARE, MEDICAID ==
[2017-08-26 16:19] VITALS: BMI 29.6
[~2017-11-12] MED LIST changes: +CIPR-214 PO; +IBUP-136 PO; -IBUP200C71 PO
[2017-11-12 11:14] VITALS: BP 105/63
[2017-11-12 11:18] LABS: PLATELET COUNT, AUTOMATED 304 K/uL (150-450)
== END ==
LOC: SPU 07:40
PROVIDERS: ATTEND Specialist
DX: G35 Multiple sclerosis (principal)
CPT/HCPCS: 36415; 82040; 82247; 82310; 82374; 82435; 82565; 82784; 82947; 84075; 84132; 84155; 84295; 84450; 84460; 84520; 85025; 88184; 88185

== ENCOUNTER → 2017-11-12 | Outpatient (CLI) | payer MEDICARE, MEDICAID ==
[2017-08-26 16:19] VITALS: BMI 29.6
[~2017-11-12] MED LIST changes: -CIPR-214 PO; -IBUP-136 PO; +IBUP200C71 PO
== END ==
LOC: LAB 10:38
PROVIDERS: ATTEND Specialist
DX: Z02.9 Encounter for administrative examinations, unspecified (principal)

== ENCOUNTER 2017-11-16 13:00 | Outpatient (RCR) | payer MEDICARE, MEDICAID ==
[2017-08-26 16:19] VITALS: BMI 29.6
[2017-09-24 12:40] VITALS: BP 113/70
--- NOTE | 2017-09-24 17:20 | ONCOLOGY FOLLOW UP NOTE ---
EVENT DATE: September 24, 2017 DIAGNOSIS Chronic myelogenous leukemia (CML). CHIEF COMPLAINT Patient is here today for followup of his CML. ONCOLOGY HISTORY The patient is a 61-year-old male who was diagnosed for over a decade now with CML, in remission with Gleevec therapy. The patient is doing very well. He had some upset stomach from Gleevec, but patient overcame that by taking the drug at night prior to sleep, and this is helping him a lot. He was diagnosed with chronic myelogenous leukemia in 2006. He did not tolerate Tasigna in the past at 300 mg twice daily after switching from Gleevec to Tasigna because of the nausea and fluid retention, but he could not tolerate Tasigna at all, so he switched back to Gleevec and is doing fine with Gleevec and in complete molecular remission currently. HISTORY OF PRESENT ILLNESS The patient is here today for followup of his CML. He would like to discuss the issues of having stem cell transplant for his multiple sclerosis. Currently he is complaining of weakness and fatigue and neuropathic symptoms in the hands and feet from multiple sclerosis, but other than that his general condition is stable. PAST MEDICAL HISTORY 1. CML. 2. Multiple sclerosis. 3. Chronic renal insufficiency. 4. Neurogenic bladder. PAST SURGICAL HISTORY Four spinal surgeries in the past. SOCIAL HISTORY The patient is . He lives with his . He was born and raised in [place]. 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 He does not smoke. He denies any use of alcohol. FAMILY HISTORY Noncontributory. CURRENT MEDICATIONS 1. Zofran 8 mg q.12h. p.r.n. for nausea. 2. Potassium chloride 10 mEq daily. 3. Calcium citrate 200 mg daily. 4. Magnesium 100 mg daily. 5. [place] 3 fatty acids 500 mg capsule two capsules daily. 6. Tylenol 500 mg q.4-6h. p.r.n. 7. Pramipexole dihydrochloride 1 mg daily. 8. Amrix 15 mg daily. 9. Zolpidem 10 mg at bedtime. 10. Vitamin D3 at 1000 units daily. 11. Gleevec 400 mg daily. 12. Vitamin B complex one capsule daily. 13. Baclofen 2000 mcg continuous intrathecal injection. 14. Lasix 40 mg every morning. 15. Lexapro 20 mg daily. 16. Ampyra 10 mg twice daily. ALLERGIES PENICILLIN. REVIEW OF SYSTEMS CONSTITUTIONAL: No appetite or weight change. No fever, chills or sweating. No recent infection. HEENT: Ears: No tinnitus or hearing problem. Nose: No nasal discharge or epistaxis. Throat: No sore throat or mouth ulcers. Eyes: No diplopia or visual changes. RESPIRATORY: No shortness of breath. No cough, expectoration or hemoptysis. CARDIOVASCULAR: No chest pain, orthopnea, or paroxysmal nocturnal dyspnea (PND) . No edema. No palpitations. GASTROINTESTINAL: He has some upset stomach with Gleevec sometimes. GENITOURINARY: No hematuria or dysuria. MUSCULOSKELETAL: No pain in the muscles, joints or bones. NEUROLOGICAL: He has tingling and numbness in the hands and feet. HEMATOLOGIC/LYMPHATIC: He is weak, tired and fatigued. No enlarged lymph nodes. SKIN: No skin rash or lumps. PSYCHIATRIC: No anxiety or depression. PHYSICAL EXAMINATION GENERAL: Looks stable. Well-developed, well-nourished, and in no acute distress. HEENT: Head: Atraumatic. No sinus tenderness to palpation. Eyes: No icterus or conjunctivitis. Mouth and throat: No oral thrush or mucositis. NECK: Supple. No cervical or supraclavicular lymphadenopathy. LUNGS: Clear to auscultation and percussion bilaterally. HEART: Regular rate and rhythm. No gallops, murmurs, clicks or rubs. ABDOMEN: Soft and lax. No tenderness. No hepatosplenomegaly. No masses. EXTREMITIES: No cyanosis, clubbing or edema. LYMPHATICS: No peripheral lymphadenopathy. NEUROLOGICAL: He has ongoing weakness due to his multiple sclerosis. He is wheelchair bound. PSYCHIATRIC: Mood and affect appear normal. SKIN: No skin rash, bruise or purpuric eruption. DIAGNOSTIC DATA CBC showed white count 6.7, hemoglobin 15.9, hematocrit 46, platelets 412,000. ASSESSMENT 1. Chronic myelogenous leukemia, in remission on Gleevec 400 mg daily. The patient is followed by Dr. Olea, his neurologist, for multiple sclerosis. Patient also went to [place] and discussed the issue of having stem cell transplant as a treatment for his multiple sclerosis, but they recommend to be off Gleevec for at least one year prior to his procedure. Patient is here today to discuss this issue. I have talked to him about that, and I told him that I had patients before who stopped the medication, but with the first followup their PCR came back positive again for BCR/ABL transcript. I also advised the patient that sometimes the leukemia when it comes back or relapses it can be very aggressive and can go into aplastic transformation. Patient would love to take his chances. So he is planning to stop the Gleevec and we are going to monitor his transcript every three months. I am planning to see him again in three months with CBC, chem panel and quantitative BCR for BCR/ABL transcript. 2. Multiple sclerosis, chronic. Patient is planning to go for stem cell transplant as a treatment for his disease. 3. Chronic renal insufficiency with neurogenic bladder. PLAN 1. Continue followup. 2. Patient to return it three months with CBC, chem panel, quantitative PCR for BCR-ABL transcript. 3. The patient to contact us for any new concerns or complaints. FILIBERTO
[~2017-11-16 13:00] MED LIST changes: -CIPR-214 PO; +IBUP-136 PO; -IBUP200C71 PO
[2017-11-16] MEDS ORDERED: diphenhydrAMINE 50 MG/ML VIAL IVP ONE (13:45)
[2017-11-16] MEDS ORDERED: methylPREDNIS SUCC 125 MG/2ML IVP ONE (13:45)
[2017-11-16] MEDS ORDERED: ACETAMINOPHEN 500 MG TAB PO ONE (13:45)
[2017-11-16] MEDS ORDERED: DEXTROSE 5%(*) 100 ML BAG 100 ML IVPB PRN (14:00)
[2017-11-16] MEDS ORDERED: LIDOCAINE/SOD BICARB 8.4% SYR ID PRN (14:00)
[2017-11-16] MEDS ORDERED: NS(*) 0.9% 100 ML BAG 100 ML IVPB PRN (14:00)
[2017-11-16] MEDS ORDERED: OCRELIZUMAB 300 MG/10 ML SDV 600 MG in NS(*) 0.9% 500 ML BAG 500 ML IVPB ONE (14:30)
[2017-11-16 15:59] VITALS: BP 110/87
[2017-11-16 18:31] VITALS: BP 134/76
[2017-11-17] MEDS ORDERED: CIPR-214 PO (10:20)
== END 2017-12-17 ==
LOC: SPU 13:00
PROVIDERS: ATTEND Internal Medicine Hematology
DX: C92.11 Chronic myeloid leukemia, BCR/ABL-positive, in remission (principal); G35 Multiple sclerosis; N18.9 Chronic kidney disease, unspecified; N31.9 Neuromuscular dysfunction of bladder, unspecified; R53.1 Weakness; R53.83 Other fatigue; Z79.899 Other long term (current) drug therapy
CPT/HCPCS: 51702; 81001; 87077; 87088; 87186; 96365; 96366; 96367; 96375; A9270; G0463; J1200; J2350; J2930; J7040; 99212

== ENCOUNTER → 2017-11-16 | Outpatient (CLI) | payer MEDICARE, MEDICAID ==
[2017-08-26 16:19] VITALS: BMI 29.6
[~2017-11-16] MED LIST changes: +CIPR-214 PO
== END ==
LOC: SPU 11:23
PROVIDERS: ATTEND Emergency Medicine
DX: R82.99 Other abnormal findings in urine (principal); B96.1 Klebsiella pneumoniae [K. pneumoniae] as the cause of diseases classified elsewhere
CPT/HCPCS: 51702; 81001; 87077; 87088; 87186

== ENCOUNTER 2017-12-25 13:30 | Outpatient (RCR) | payer MEDICARE, MEDICAID ==
[2017-08-26 16:19] VITALS: BMI 29.6
[2017-12-18 11:17] VITALS: BP 102/66
[2017-12-18 12:09] LABS: PLATELET COUNT, AUTOMATED 308 K/uL (150-450)
[~2017-12-25 13:30] MED LIST changes: +CIPR-214 PO; -POTA20PA10 PO; +POTA20PA31 PO
[2017-12-25 13:40] VITALS: BP 99/64
--- NOTE | 2017-12-25 18:46 | [facility] ONCOLOGY NOTE ---
EVENT DATE: December 25, 2017 DIAGNOSIS Chronic myelogenous leukemia (CML). CHIEF COMPLAINT Patient is here today for followup of his CML. ONCOLOGY HISTORY The patient is a 62-year-old male who was diagnosed for over a decade now with CML, in remission with Gleevec therapy. The patient is doing very well. He had some upset stomach from Gleevec, but patient overcame that by taking the drug at night prior to sleep, and this is helping him a lot. He was diagnosed with chronic myelogenous leukemia in 2006. He did not tolerate Tasigna in the past at 300 mg twice daily after switching from Gleevec to Tasigna because of the nausea and fluid retention, but he could not tolerate Tasigna at all, so he switched back to Gleevec and is doing fine with Gleevec and in complete molecular remission currently. HISTORY OF PRESENT ILLNESS The patient is here today for followup of his chronic myelogenous leukemia. Patient had stopped his treatment with Gleevec in September 2017. He is doing fine currently. He continues to have tingling and numbness in the hands and feet. He has also nasal discharge from allergy. PAST MEDICAL HISTORY 1. CML. 2. Multiple sclerosis. 3. Chronic renal insufficiency. 4. Neurogenic bladder. PAST SURGICAL HISTORY Four spinal surgeries in the past. SOCIAL HISTORY The patient is . He lives with his . He was born and raised in [place]. 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 He does not smoke. He denies any use of alcohol. FAMILY HISTORY Noncontributory. CURRENT MEDICATIONS 1. Zofran 8 mg q.12 hours p.r.n. for nausea. 2. Potassium chloride 10 mEq daily. 3. Calcium citrate 200 mg daily. 4. Magnesium 100 mg daily. 5. Red Bud 3 fatty acids 500 mg capsule, two capsules daily. 6. Tylenol 500 mg q.4-6 hours p.r.n. 7. Pramipexole dihydrochloride 1 mg daily. 8. Amrix 15 mg daily. 9. Zolpidem 10 mg at bedtime. 10. Vitamin D3 at 1000 units daily. 11. Gleevec 400 mg daily. 12. Vitamin B complex one capsule daily. 13. Baclofen 2000 mcg continuous intrathecal injection. 14. Lasix 40 mg every morning. 15. Lexapro 20 mg daily. 16. Ampyra 10 mg twice daily. ALLERGIES PENICILLIN. REVIEW OF SYSTEMS CONSTITUTIONAL: No appetite or weight change. No fever, chills, or sweating. No recent infection. HEENT: Ears: No tinnitus or hearing problem. Nose: He has nasal discharge from allergies. Throat: No sore throat or mouth ulcers. Eyes: No diplopia or visual changes. RESPIRATORY: No shortness of breath. No cough, expectoration, or hemoptysis. CARDIOVASCULAR: No chest pain, orthopnea, or paroxysmal nocturnal dyspnea (PND) . No edema. No palpitations. GASTROINTESTINAL: He has some upset stomach with Gleevec sometimes. GENITOURINARY: No hematuria or dysuria. MUSCULOSKELETAL: No pain in the muscles, joints, or bones. NEUROLOGICAL: He has tingling and numbness in his hands and feet. HEMATOLOGIC/LYMPHATIC: He is weak, tired, and fatigued. No enlarged lymph nodes. SKIN: No skin rash or lumps. PSYCHIATRIC: No anxiety or depression. PHYSICAL EXAMINATION GENERAL: Looks stable. Well developed, well nourished, and in no acute distress. VITAL SIGNS: Blood pressure 99/64, pulse 83 per minute, respirations 16 per minute, temperature 96.9, pulse ox 93% on room air. HEENT: Head: Atraumatic. No sinus tenderness to palpation. Eyes: No icterus or conjunctivitis. Mouth and throat: No oral thrush or mucositis. NECK: Supple. No cervical or supraclavicular lymphadenopathy. LUNGS: Clear to auscultation and percussion bilaterally. HEART: Regular rate and rhythm. No gallops, murmurs, clicks, or rubs. ABDOMEN: Soft and lax. No tenderness. No hepatosplenomegaly. No masses. EXTREMITIES: No cyanosis, clubbing, or edema. LYMPHATICS: No peripheral lymphadenopathy. NEUROLOGICAL: He has ongoing weakness due to his multiple sclerosis. He is wheelchair bound. PSYCHIATRIC: Mood and affect appear normal. SKIN: No skin rash, bruise, or purpuric eruption. DIAGNOSTIC DATA CBC showed white count 8.9, hemoglobin 15.2, hematocrit 43.7, platelets 308, 000. Chem panel is totally normal. Quantitative BCR-ABL transcript showed that the transcript dropped from 10.2% to 3.4%, but his last one was on the March, so we cannot cloth classer if after stopping Gleevec in September 2017 if that is a bad or good effect so far. ASSESSMENT 1. Chronic myelogenous leukemia, on Gleevec 400 mg daily. The patient is followed by Dr. Olea, his neurologist, for multiple sclerosis. Patient went to [facility] to discuss the issue of having stem cell transplant as a treatment for his multiple sclerosis, but they recommended him to be off Gleevec for at least one year prior to his procedure. Patient stopped his treatment in September 2017. Despite the fact his BCR-ABL transcript dropped from 10.2% in March 2017 to currently 3.4% in December 2017, there are no in between levels to compare after he stopped his Gleevec. I am planning to see him again in three months with repeat CBC, chem panel, and quantitative PCR for BCR-ABL to see if his transcript is going up or down at that time. I explained that to the patient. He is agreeable with the plan of management. 2. Multiple sclerosis, chronic. Patient is waiting for stem cell transplant as a treatment for his disease. 3. Chronic renal insufficiency with neurogenic bladder. PLAN 1. Continue followup. 2. Patient to return it three months with CBC, chem panel, quantitative PCR for BCR-ABL transcript. 3. The patient to contact us for any concerns or complaints. [facility]
[2017-12-28] MEDS ORDERED: ZOLP-358 PO (03:39)
[2018-01-20] MEDS ORDERED: APIX5TAB PO (13:40)
== END 2018-03-18 ==
LOC: ONC 13:30
PROVIDERS: ATTEND Internal Medicine Hematology
DX: C92.11 Chronic myeloid leukemia, BCR/ABL-positive, in remission (principal); G35 Multiple sclerosis; N18.9 Chronic kidney disease, unspecified; N31.9 Neuromuscular dysfunction of bladder, unspecified; R53.1 Weakness; R53.83 Other fatigue; Z79.899 Other long term (current) drug therapy
CPT/HCPCS: 36415; 85025; G0463; 82040; 82247; 82310; 82374; 82435; 82565; 82947; 84075; 84132; 84155; 84295; 84450; 84460; 84520; 99212

== ENCOUNTER 2017-12-27 23:14 | Emergency (ER) | payer MEDICARE, MEDICAID ==
[2017-08-26 16:19] VITALS: Wt 83.9 kg
--- NOTE | 2017-12-27 23:25 | ER Report ---
History and Physical Time Seen By MD: 23:22 HPI/ROS CHIEF COMPLAINT: Weakness of legs and hands HISTORY OF PRESENT ILLNESS: 62-year-old male with a history of MS and CML on Gleevec discontinued 3 months ago with plans for stem cell treatment. Patient notes gradual weakness developing throughout the day. Tonight he was unable to stand, which she is normally able to do at the sink and perform his activities of daily living. He also is able to stand and transfer into a shower and bathe. His legs are so weak he is unable to stand at all. He is unable to lift his behind off of his wheelchair. He notes that he is losing strength in his hands. There still functioning. Patient states he presented with similar symptoms a year ago and was having hypoglycemic attacks as well as a urinary tract infection.Family checked his glucose at home at 162. He has an indwelling suprapubic catheter. He has a baclofen pump. Patient notes no fever , chills or sore throat. He denies shortness of breath or chest pain. He denies nausea, vomiting, diarrhea or constipation. He denies abdominal pain. He notes there is some drainage around his suprapubic catheter. He notes no leg swelling or calf pain. Patient's medical power of employment law attorney is his eldest daughter Vera Issa [phone] REVIEW OF SYSTEMS: Respiratory: No cough, no dyspnea. Cardiovascular: No chest pain, no palpitations. Gastrointestinal: No vomiting, no abdominal pain. Musculoskeletal: No back pain. Allergies: Coded Allergies: Penicillins (Verified Allergy, Intermediate, HIVES, 08/25/17) Home Meds Active Scripts Imatinib Mesylate (GLEEVEC) 400 Mg Tab, 400 MG PO HS for 30 Days, #30 TAB 9 Refills Prov:PAYTON MONTEMAYOR CYTOLOGY SUPERVISOR-BC, ONC 04/03/17 Reported Medications Zolpidem Tartrate (ZOLPIDEM TARTRATE) 10 Mg Tablet, 1 TAB PO QHS 12/28/17 Omeprazole (OMEPRAZOLE) 40 Mg Capsule.dr, 40 MG PO BID, CAP 09/03/17 Nabumetone (NABUMETONE) 500 Mg Tablet, 500 MG PO BID, #20 TAB 09/03/17 Baclofen (GABLOFEN) 50 Mcg/1 Ml Disp.syrin, 50 MCG IT 09/03/17 Dalfampridine (AMPYRA) 10 Mg Tabcr, 10 MG PO Q12H 09/03/17 Melatonin (MELATONIN) 5 Mg Tablet, 5 MG PO QHS 09/03/17 Cholecalciferol (Vitamin D3) (VITAMIN D3) 2,000 Unit Tablet, 2000 UNIT PO BID 07/20/16 Pramipexole Di-Hcl (PRAMIPEXOLE DIHYDROCHLORIDE) 1 Mg Tablet, 1 MG PO HS 07/20/16 Potassium Chloride (POTASSIUM CHLORIDE) 10 Meq Tab.er.prt, 10 MEQ PO BID Y for low potassium 07/20/16 Magnesium Citrate (MAGNESIUM CITRATE) 100 Mg Tablet, 500 MG PO DAILY 07/20/16 Furosemide (FUROSEMIDE) 20 Mg Tablet, 1-2 TAB PO DAILY, TAB 07/20/16 Escitalopram Oxalate (ESCITALOPRAM OXALATE) 20 Mg Tablet, 20 MG PO QDAY 07/20/16 Calcium Citrate/Vitamin D3 (Calcium Citrate +Vit D3 Tablet) 200 Mg Calcium-250 Unit Tablet 07/20/16 Discontinued Scripts Ciprofloxacin Hcl (CIPROFLOXACIN HCL) 500 Mg Tablet, 500 MG PO Q12H, #14 TAB Prov:JC MEEHAN MD 11/17/17 Past Medical/Surgical History PAST MEDICAL HISTORY 1. CML. 2. Multiple sclerosis. 3. Chronic renal insufficiency. 4. Neurogenic bladder. PAST SURGICAL HISTORY Four spinal surgeries in the past. SOCIAL HISTORY The patient is . He lives with his . He was born and raised in [place]. 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 He does not smoke. He denies any use of alcohol. Hx Smoking: No Smoking Status: Never Smoker Exposure to Second Hand Smoke?: No Hx Substance Use Disorder: No Hx Alcohol Use: Yes Constitutional Vital Sign - Last 24 Hours 12/27/17 12/27/17 12/27/17 12/27/17 23:24 23:29 23:31 23:59 Temp 97.9 Pulse 75 79 75 Resp 16 35 B/P (MAP) 106/77 108/64 (79) Pulse Ox 95 95 O2 Delivery Room Air 12/28/17 12/28/17 12/28/17 12/28/17 00:00 00:29 00:30 00:44 Pulse 71 71 Resp 18 18 B/P (MAP) 102/60 (74) 94/60 (71) 12/28/17 12/28/17 12/28/17 8/13/18 00:59 01:00 01:05 01:30 Pulse 74 69 Resp 18 15 B/P (MAP) 121/73 (89) 129/81 (97) Pulse Ox 94 95 12/28/17 12/28/17 12/28/17 12/28/17 01:35 01:50 01:55 02:00 Pulse 72 70 66 Resp 23 20 13 B/P (MAP) 91/52 (65) Pulse Ox 96 96 97 12/28/17 12/28/17 12/28/17 12/28/17 02:10 02:25 02:30 02:35 Pulse 61 65 64 Resp 14 14 16 B/P (MAP) 83/47 (59) Pulse Ox 98 98 98 12/28/17 12/28/17 12/28/17 12/28/17 02:50 03:00 03:05 03:20 Pulse 62 62 60 Resp 14 14 15 B/P (MAP) 85/48 (60) Pulse Ox 97 97 98 12/28/17 12/28/17 12/28/17 12/28/17 03:21 03:30 03:35 03:50 Pulse 58 57 Resp 16 13 B/P (MAP) 85/49 (61) 83/47 (59) Pulse Ox 98 99 12/28/17 12/28/17 12/28/17 04:00 04:05 04:10 Pulse 58 61 Resp 13 14 B/P (MAP) 88/49 (62) Pulse Ox 98 99 Physical Exam General Appearance: The patient is alert, has no immediate need for airway protection and no signs of toxicity. Vital signs stable, afebrile, pulse ox normal Eyes: Pupils equal and round no pallor or injection. ENT, Mouth: Mucous membranes are moist. Respiratory: There are no retractions, lungs are clear to auscultation. Cardiovascular: Regular rate and rhythm. Gastrointestinal: Abdomen is soft and non tender, no masses, bowel sounds normal. Indwelling suprapubic catheter with some erythema and purulent drainage at the site Neurological: Alert and oriented 3. Patient has a weak grasp bilaterally in his hands. He has full range of motion of his upper extremity. He is unable to lift his legs off the bed. He is able to push down with plantarflexion of his feet approximately 1/5. He is able to wiggle his toes. Skin: Warm and dry, no rashes. Musculoskeletal: Neck is supple non tender. Extremities are nontender, there is bilateral chronic-appearing, 1+ edema bilaterally DIFFERENTIAL DIAGNOSIS: After history and physical exam differential diagnosis was considered for weakness including but not limited to electrolyte abnormality , depression, anxiety, CVA, MS exacerbation, spinal cord abnormality, and infectious causes. Medical Decision Making Data Points Result Diagram: 12/27/17 2533 12/27/17 8610 Laboratory Hematology Test 12/27/17 23:57 12/28/17 00:58 Red Blood Count 4.63 M/uL (4.00-5.60) Mean Corpuscular Volume 98.0 fL (80.0-96.0) Mean Corpuscular Hemoglobin 34.6 pg (26.0-33.0) Mean Corpuscular Hemoglobin Concent 35.4 g/dL (32.0-36.0) Red Cell Distribution Width 13.4 % (11.5-14.5) Mean Platelet Volume 9.3 fL (7.2-11.1) Neutrophils (%) (Auto) 71.7 % (39.4-72.5) Lymphocytes (%) (Auto) 10.8 % (17.6-49.6) Monocytes (%) (Auto) 9.9 % (4.1-12.4) Eosinophils (%) (Auto) 6.6 % (0.4-6.7) Basophils (%) (Auto) 1.0 % (0.3-1.4) Nucleated RBC Relative Count (auto) 0.0 /100WBC Neutrophils # (Auto) 7.3 K/uL (2.0-7.4) Lymphocytes # (Auto) 1.1 K/uL (1.3-3.6) Monocytes # (Auto) 1.0 K/uL (0.3-1.0) Eosinophils # (Auto) 0.7 K/uL (0.0-0.5) Basophils # (Auto) 0.1 K/uL (0.0-0.1) Nucleated RBC Absolute Count (auto) 0.00 K/uL Sodium Level 139 mmol/L (137-145) Potassium Level 3.6 mmol/L (3.5-5.0) Chloride Level 105 mmol/L (98-107) Carbon Dioxide Level 25 mmol/L (22-30) Blood Urea Nitrogen 19 mg/dl (9-21) Creatinine 1.10 mg/dl (0.66-1.25) Glomerular Filtration Rate Calc > 60.0 Random Glucose 140 mg/dl (75-110) Lactate 2.2 mmol/L (0.7-2.1) Calcium Level 9.0 mg/dl (8.4-10.2) Total Bilirubin 0.4 mg/dl (0.2-1.3) Aspartate Amino Transf (AST/SGOT) 16 U/L (0-35) Alanine Aminotransferase (ALT/SGPT) 16 U/L (0-56) Alkaline Phosphatase 67 U/L (0-126) Total Creatine Kinase 66 U/L (55-170) Troponin I < 0.012 ng/ml Total Protein 6.0 g/dl (6.3-8.2) Albumin 3.3 g/dl (3.5-5.0) Urine Color Mary Urine Clarity Cloudy Urine pH 5.0 pH (4.8-9.5) Urine Specific [place] 1.028 Urine Protein 30 mg/dL (NEGATIVE) Urine Glucose (UA) Negative mg/dL (NEGATIVE) Urine Ketones Negative mg/dL (NEGATIVE) Urine Blood Negative (NEGATIVE) Urine Nitrite Negative (NEGATIVE) Urine Bilirubin Negative (NEGATIVE) Urine Urobilinogen 2.0 mg/dL (0.2-1.9) Urine Leukocyte Esterase Large (NEGATIVE) Urine RBC 19 /HPF (0-2/HPF) Urine WBC 349 /HPF (0-5/HPF) Urine WBC Clumps Many /HPF Urine Squamous Epithelial Cells Many /LPF (NONE-FEW) Urine Amorphous Crystals Few /HPF Urine Bacteria Few /HPF (NONE-FEW) Urine Mucus Few /HPF (NONE-FEW) Chemistry Test 12/27/17 23:57 12/28/17 00:58 White Blood Count 10.2 k/uL (4.5-11.0) Red Blood Count 4.63 M/uL (4.00-5.60) Hemoglobin 16.0 g/dL (14.0-18.0) Hematocrit 45.4 % (42.0-52.0) Mean Corpuscular Volume 98.0 fL (80.0-96.0) Mean Corpuscular Hemoglobin 34.6 pg (26.0-33.0) Mean Corpuscular Hemoglobin Concent 35.4 g/dL (32.0-36.0) Red Cell Distribution Width 13.4 % (11.5-14.5) Platelet Count 339 K/uL (150-450) Mean Platelet Volume 9.3 fL (7.2-11.1) Neutrophils (%) (Auto) 71.7 % (39.4-72.5) Lymphocytes (%) (Auto) 10.8 % (17.6-49.6) Monocytes (%) (Auto) 9.9 % (4.1-12.4) Eosinophils (%) (Auto) 6.6 % (0.4-6.7) Basophils (%) (Auto) 1.0 % (0.3-1.4) Nucleated RBC Relative Count (auto) 0.0 /100WBC Neutrophils # (Auto) 7.3 K/uL (2.0-7.4) Lymphocytes # (Auto) 1.1 K/uL (1.3-3.6) Monocytes # (Auto) 1.0 K/uL (0.3-1.0) Eosinophils # (Auto) 0.7 K/uL (0.0-0.5) Basophils # (Auto) 0.1 K/uL (0.0-0.1) Nucleated RBC Absolute Count (auto) 0.00 K/uL Glomerular Filtration Rate Calc > 60.0 Lactate 2.2 mmol/L (0.7-2.1) Calcium Level 9.0 mg/dl (8.4-10.2) Total Bilirubin 0.4 mg/dl (0.2-1.3) Aspartate Amino Transf (AST/SGOT) 16 U/L (0-35) Alanine Aminotransferase (ALT/SGPT) 16 U/L (0-56) Alkaline Phosphatase 67 U/L (0-126) Total Creatine Kinase 66 U/L (55-170) Troponin I < 0.012 ng/ml Total Protein 6.0 g/dl (6.3-8.2) Albumin 3.3 g/dl (3.5-5.0) Urine Color Mary Urine Clarity Cloudy Urine pH 5.0 pH (4.8-9.5) Urine Specific [place] 1.028 Urine Protein 30 mg/dL (NEGATIVE) Urine Glucose (UA) Negative mg/dL (NEGATIVE) Urine Ketones Negative mg/dL (NEGATIVE) Urine Blood Negative (NEGATIVE) Urine Nitrite Negative (NEGATIVE) Urine Bilirubin Negative (NEGATIVE) Urine Urobilinogen 2.0 mg/dL (0.2-1.9) Urine Leukocyte Esterase Large (NEGATIVE) Urine RBC 19 /HPF (0-2/HPF) Urine WBC 349 /HPF (0-5/HPF) Urine WBC Clumps Many /HPF Urine Squamous Epithelial Cells Many /LPF (NONE-FEW) Urine Amorphous Crystals Few /HPF Urine Bacteria Few /HPF (NONE-FEW) Urine Mucus Few /HPF (NONE-FEW) Urinalysis Test 12/28/17 00:58 Urine Color Mary Urine Clarity Cloudy Urine pH 5.0 pH (4.8-9.5) Urine Specific [place] 1.028 Urine Protein 30 mg/dL (NEGATIVE) Urine Glucose (UA) Negative mg/dL (NEGATIVE) Urine Ketones Negative mg/dL (NEGATIVE) Urine Blood Negative (NEGATIVE) Urine Nitrite Negative (NEGATIVE) Urine Bilirubin Negative (NEGATIVE) Urine Urobilinogen 2.0 mg/dL (0.2-1.9) Urine Leukocyte Esterase Large (NEGATIVE) Urine RBC 19 /HPF (0-2/HPF) Urine WBC 349 /HPF (0-5/HPF) Urine WBC Clumps Many /HPF Urine Squamous Epithelial Cells Many /LPF (NONE-FEW) Urine Amorphous Crystals Few /HPF Urine Bacteria Few /HPF (NONE-FEW) Urine Mucus Few /HPF (NONE-FEW) EKG/Imaging EKG Interpretation 12 lead EK Rhythm: normal sinus rhythm [place]: normal QRS: normal ST segments: normal, comparison to previous EKG dated 07/22/16, no significant change Imaging Results: CT scan of the head without contrast was obtained. The results of the study are HEAD W/O CONTRAST HISTORY: History of multiple sclerosis. New weakness in legs and hand. COMPARISON: Brain MR 11/05/2016. Most recent head CT 07/23/2016 and studies dating to 07/05/2008. TECHNIQUE: Axial images were obtained from the skull base to the vertex without contrast. Sagittal and coronal reformats were performed. One of the following dose optimization techniques was utilized in the performance of this exam: Automated exposure control; adjustment of the mA and/ or kV according to the patient's size; or use of an iterative reconstruction technique. Specific details can be referenced in the facility's radiology CT exam operational policy. CONTRAST: None. FINDINGS: Brain: No intracranial hemorrhage or mass. There are deep, periventricular, and subcortical white matter low attenuating lesions, compatible with provided history of multiple sclerosis, with a stable appearance compared to most recent CT. There is a stable dilated perivascular space within the right putamen. Ventricles and sulci: Sulci are prominent, compatible with mild atrophy, normal for age. Ventricular size and configuration is normal. Osseous structures: New from prior study is a minimally comminuted fracture of the anterior arch of C1, extending toward the right. There is also a nondisplaced fracture of the right posterior arch of C1. Paranasal sinuses and mastoids: There is mild to moderate mucosal thickening of the left maxillary sinus. There is a small mucous retention pseudocyst in the right maxillary sinus. There is rightward nasal septal deviation and a rightward nasal septal spur. Mastoids are clear. Orbits and soft tissues: Normal. IMPRESSION: 1. No acute intracranial abnormality. 2. Fractures of the anterior and right posterior arch of C1, new from prior study. The study was read by the radiologist. I viewed the images myself on the PACS system. Results: CT scan of the cervical spine without contrast was obtained. The results of the study are C-SPINE W/O CONTRAST HISTORY: Fracture noted on head CT performed earlier same evening. COMPARISON: No prior cervical spine studies CT. There is a cervical spine MR from 11/05/2016. TECHNIQUE: Axial images were obtained from the skull base through the upper thoracic spine. Coronal and sagittal reformatted images were obtained from the axial source data. One of the following dose optimization techniques was utilized in the performance of this exam: Automated exposure control; adjustment of the mA and/ or kV according to the patient's size; or use of an iterative reconstruction technique. Specific details can be referenced in the facility's radiology CT exam operational policy. CONTRAST: None. FINDINGS: Musculoskeletal/vertebra: As was noted on the recent head CT, there is a mildly comminuted fractures through the right anterior arch of C1 that extends to involve the medial right articular pillar (axial image 41). There is also a fracture through the right posterior arch of C1. There is 1 mm posterior and right lateral displacement of the dominant fracture fragment (axial image 44 series 3). Fractures are new since the MR cervical spine of 11/05/2016. No other fracture. There is severe degenerative disc disease at C4-5, C5-6, and C6-7, and there is milder degenerative disc disease at other levels. There is endplate sclerosis from C4-5 through C6-7. There is severe bilateral foraminal stenosis at from C3- 4 through C6-7. There is mild spinal stenosis from C3-4 through C6-7. There is severe degenerative facet disease on the left at C2-3 through C4-5 and at C7-T1 , and on the right from C2-3 through C4-5. There is 3 mm anterolisthesis of C3 on C4. There is 3 mm retrolisthesis of C5 compared to C4 and C6. There is 2 mm retrolisthesis of C6 compared to C7. There is 2 mm anterolisthesis of C7 on T1. Prevertebral soft tissues are within normal limits. There is mild pannus formation that is partially calcified at C1-2. Visualized upper chest: Normal. Soft tissues: Normal. IMPRESSION: 1. As was identified on the CT brain, there are fractures through the right anterior arch of C1 and of the right posterior arch of C1. The anterior C1 arch fracture extends to involve the medial C1 right articular pillar. No other fracture. 2. Severe degenerative changes of the cervical spine. The study was read by the radiologist. I viewed the images myself on the PACS system. ED Course/Re-evaluation Clinical Indication for ER IV: Hydration, IV Access ED Course Patient was admitted to an examination room. H&P was done. The differential diagnoses was considered. Patient with weakness of all 4 extremities. He has no trauma or neck pain. Diagnostic evaluation was undertaken. She has similar presentations from the past with exacerbation of his MS with infection. A urinalysis from his suprapubic catheter shows evidence of infection. His lactate is slightly elevated at 2.2. He is given Rocephin 1 g and urinary cultures ordered. CT scan of the head returns a cervical 1 fracture in both the anterior, posterior aspect of the cervical ring of C1. Patient with loss of personal banker strength bilaterally. Which as been progressive over the last 24 hours. Patient was aggressively medicated with fentanyl 50 g IV discomfort in his arms and legs after he was placed in a cervical collar. He continued to have pain and muscle spasms. He was medicated with Ativan 1 mg and Dilaudid 1 mg he was then placed in a soft collar, which seemed to provide more comfort and reduction of his peripheral arm and leg symptoms. A CT scan of the cervical spine shows advanced degenerative disc disease with compression of all nerve roots and the spinal canal shows spinal stenosis secondary to the stasis of multiple segments of the cervical spine. Patient's power of employment law attorney is Vera Issa his eldest daughter [phone]. Patient's previously had care lumbar spinal surgery was for by neurosurgeon, Dr. Luis Miguel Cottrell. She also sees a neurologist in [place]. Family and patient unable to recall the name. 12/28/2017 2:25:31 am case discussed with Dr. Colon neurosurgeon at [facility] who advises transfer to the trauma service and maintain the patient in a cervical collar 12/28/2017 2:48:07 am case discussed with Dr. Yuen trauma surgeon who accepts the patient for transfer to the ER at [facility] 12/28/2017 2:51:12 am case discussed with Dr. Avelino Ramirez ER attending, who also except the patient to the ER. He will contact the above of physicians. Upon the patient's arrival Decision to Disposition Date: Dec 28, 2017 Decision to Disposition Time: 02:07 Critical Care Time I spent a total of 90 minutes of critical care time in obtaining history, performing a physical exam, bedside monitoring of interventions, collecting and interpreting tests and discussion with consultants but not including time spent performing procedures. Depart Departure Latest Vital Signs Vital Signs Date Time Temp Pulse Resp B/P (MAP) Pulse Ox O2 Delivery O2 Flow Rate FiO2 12/28/17 04:10 61 14 99 12/28/17 04:00 88/49 (62) 12/27/17 23:24 97.9 Room Air Impression: Primary Impression: C1 cervical fracture Additional Impressions: Degenerative disc disease, cervical Multiple sclerosis, primary progressive Urinary tract infection CML (chronic myelocytic leukemia) Condition: Improved Disposition: XFER TO ACUTE CARE HOSPITAL Referrals: LEXI GUARDADO (PCP) Problem Qualifiers Primary Impression: C1 cervical fracture Encounter type: initial encounter Fracture type: closed Fracture morphology : unspecified fracture morphology Fracture alignment: nondisplaced Qualified Codes: S12.001A - Unspecified nondisplaced fracture of first cervical vertebra, initial encounter for closed fracture Additional Impressions: Urinary tract infection Urinary tract infection type: catheter-associated UTI Indwelling urinary catheter type: indwelling urethral catheter Encounter type: initial encounter Qualified Codes: T83.511A - Infection and inflammatory reaction due to indwelling urethral catheter, initial encounter; N39.0 - Urinary tract infection, site not specified DEBORAH COLE DO Dec 27, 2017 23:25
[2017-12-27] MEDS ORDERED: NS(*) 0.9% 1000 ML BAG 1,000 ML IV ONE (23:40)
--- NOTE | 2017-12-27 23:56 | EKG ---
FACILITY: [facility] PATIENT NAME: KAELA DUGGAN : [id number] MR: [id number] V: [id number] EXAM DATE: ORDERING PHYSICIAN: DEBORAH COLE TECHNOLOGIST: ROBIN Test Reason : WEAKNESS Blood Pressure : / mmHG Vent. Rate : 072 BPM Atrial Rate : 072 BPM P-R Int : 140 ms QRS Dur : 088 ms QT Int : 390 ms P-R-T Axes : 072 077 071 degrees QTc Int : 427 ms Normal sinus rhythm Normal ECG When compared with ECG of 22-JUL-2016 22:58, No significant change was found Confirmed by HARSH TOMPKINS ([id number]) on 12/28/2017 6:29:13 AM Referred By: Confirmed By:HARSH TOMPKINS
[2017-12-28 00:13] LABS: PLATELET COUNT, AUTOMATED 339 K/uL (150-450)
--- NOTE | 2017-12-28 00:48 | RADIOLOGY IMAGING REPORT ---
[place] [facility] [place] NAME: Luciano Goldman : 1955 MR: [id number] V: [id number] EXAM DATE: ORDERING PHYSICIAN: DEBORAH COLE TECHNOLOGIST: Location: [facility] Patient: Luciano Goldman : 1955 Visit/Account:[id number] Date of Sevice: 12/27/2017 CHEST SINGLE AP 12/27/2017 23:40 hours. HISTORY: History of multiple sclerosis. New weakness in legs and hand. COMPARISON: 07/22/2016 and studies dating to 04/01/2010. TECHNIQUE: Portable AP view of the chest. FINDINGS: Tubes/lines/hardware: None. Pulmonary: Lungs are clear. There is a small right pleural effusion, new. No pneumothorax. Cardiomediastinal: Cardiac and mediastinal silhouettes are within normal limits. Bones/soft tissues: No acute osseous abnormality. The visible abdomen is normal. IMPRESSION: 1. New small right pleural effusion. Report Dictated By: Shonda Murphy at 12/28/2017 12:41 AM Report E-Signed By: Shonda Murphy at 12/28/2017 12:43 AM WSN:[id number]
--- NOTE | 2017-12-28 00:56 | RADIOLOGY IMAGING REPORT ---
FACILITY: [facility] PATIENT NAME: Luciano Goldman : 1955 MR: [id number] V: [id number] EXAM DATE: ORDERING PHYSICIAN: DEBORAH COLE TECHNOLOGIST: Location: [facility] [place] Patient: Luciano Goldman : 1955 Visit/Account:[id number] Date of Sevice: 12/27/2017 HEAD W/O CONTRAST HISTORY: History of multiple sclerosis. New weakness in legs and hand. COMPARISON: Brain MR 11/05/2016. Most recent head CT 07/23/2016 and studies dating to 07/05/2008. TECHNIQUE: Axial images were obtained from the skull base to the vertex without contrast. Sagittal an d coronal reformats were performed. One of the following dose optimization techniques was utilized in the performance of this exam: Autom ated exposure control; adjustment of the mA and/or kV according to the patient's size; or use of an i terative reconstruction technique. Specific details can be referenced in the facility's radiology CT exam operational policy. CONTRAST: None. FINDINGS: Brain: No intracranial hemorrhage or mass. There are deep, periventricular, and subcortical white mat ter low attenuating lesions, compatible with provided history of multiple sclerosis, with a stable ap pearance compared to most recent CT. There is a stable dilated perivascular space within the right pu tamen. Ventricles and sulci: Sulci are prominent, compatible with mild atrophy, normal for age. Ventricular size and configuration is normal. Osseous structures: New from prior study is a minimally comminuted fracture of the anterior arch of C 1, extending toward the right. There is also a nondisplaced fracture of the right posterior arch of C 1. Paranasal sinuses and mastoids: There is mild to moderate mucosal thickening of the left maxillary si nus. There is a small mucous retention pseudocyst in the right maxillary sinus. There is rightward na avery septal deviation and a rightward nasal septal spur. Mastoids are clear. Orbits and soft tissues: Normal. IMPRESSION: 1. No acute intracranial abnormality. 2. Fractures of the anterior and right posterior arch of C1, new from prior study. These findings were discussed by phone with DEBORAH COLE on 12/28/2017 12:51 AM. Report Dictated By: Shonda Murphy at 12/28/2017 12:43 AM Report E-Signed By: Shonda Murphy at 12/28/2017 12:53 AM WSN:[id number]
[2017-12-28] MEDS ORDERED: fentaNYL CITR 100 MCG/2 ML AMP IVP ONE (01:05)
[2017-12-28] MEDS ORDERED: HYDROMORPHONE HCL 1 MG/ML SYRINGE IVP ONE (01:35)
[2017-12-28] MEDS ORDERED: LORazepam 1 MG TAB PO ONE (01:35)
[2017-12-28] MEDS ORDERED: LORazepam 2 MG/ML VIAL IVP ONE (01:35)
--- NOTE | 2017-12-28 01:57 | RADIOLOGY IMAGING REPORT ---
FACILITY: [facility] PATIENT NAME: Luciano Goldman : 1955 MR: [id number] V: [id number] EXAM DATE: ORDERING PHYSICIAN: DEBORAH COLE TECHNOLOGIST: Location: [facility] Patient: Luciano Goldman : 1955 Visit/Account:[id number] Date of Sevice: 12/28/2017 C-SPINE W/O CONTRAST HISTORY: Fracture noted on head CT performed earlier same evening. COMPARISON: No prior cervical spine studies CT. There is a cervical spine MR from 11/05/2016. TECHNIQUE: Axial images were obtained from the skull base through the upper thoracic spine. Coronal a nd sagittal reformatted images were obtained from the axial source data. One of the following dose optimization techniques was utilized in the performance of this exam: Autom ated exposure control; adjustment of the mA and/or kV according to the patient's size; or use of an i terative reconstruction technique. Specific details can be referenced in the facility's radiology CT exam operational policy. CONTRAST: None. FINDINGS: Musculoskeletal/vertebra: As was noted on the recent head CT, there is a mildly comminuted fractures through the right anterior arch of C1 that extends to involve the medial right articular pillar (axia l image 41). There is also a fracture through the right posterior arch of C1. There is 1 mm posterior and right lateral displacement of the dominant fracture fragment (axial image 44 series 3). Fracture s are new since the MR cervical spine of 11/05/2016. No other fracture. There is severe degenerative disc disease at C4-5, C5-6, and C6-7, and there is milder degenerative d isc disease at other levels. There is endplate sclerosis from C4-5 through C6-7. There is severe bila teral foraminal stenosis at from C3-4 through C6-7. There is mild spinal stenosis from C3-4 through C 6-7. There is severe degenerative facet disease on the left at C2-3 through C4-5 and at C7-T1 , and o n the right from C2-3 through C4-5. There is 3 mm anterolisthesis of C3 on C4. There is 3 mm retrolisthesis of C5 compared to C4 and C6. There is 2 mm retrolisthesis of C6 compared to C7. There is 2 mm anterolisthesis of C7 on T1. Prevertebral soft tissues are within normal limits. There is mild pannus formation that is partially calcified at C1-2. Visualized upper chest: Normal. Soft tissues: Normal. IMPRESSION: 1. As was identified on the CT brain, there are fractures through the right anterior arch of C1 and o f the right posterior arch of C1. The anterior C1 arch fracture extends to involve the medial C1 righ t articular pillar. No other fracture. 2. Severe degenerative changes of the cervical spine. Report Dictated By: Shonda Murphy at 12/28/2017 1:41 AM Report E-Signed By: Shonda Murphy at 12/28/2017 1:53 AM WSN:[id number]
[2017-12-28] MEDS ORDERED: cefTRIAXone 1 GM VIAL IVP ONE (02:05)
[2017-12-28] MEDS ORDERED: ZOLP-358 PO (03:39)
[2017-12-28 04:00] VITALS: BP 88/49
== END 2017-12-28 04:24 | disposition short-term general hospital (02) ==
LOC: ER 23:32
DX: S12.001A Unspecified nondisplaced fracture of first cervical vertebra, initial encounter for closed fracture (principal); N39.0 Urinary tract infection, site not specified; T83.511A Infection and inflammatory reaction due to indwelling urethral catheter, initial encounter; G35 Multiple sclerosis; C92.10 Chronic myeloid leukemia, BCR/ABL-positive, not having achieved remission
CPT/HCPCS: 70450; 71045; 72125; 81001; 82550; 83605; 84484; 85025; 87088; 93005; 96361; 96374; 96375; 99291; 99292; J0696; J1170; J2060; J3010; J7030; 82040; 82247; 82310; 82374; 82435; 82565; 82947; 84075; 84132; 84155; 84295; 84450; 84460; 84520

== ENCOUNTER → 2017-12-28 | Outpatient (CLI) | payer MEDICARE, MEDICAID ==
[2017-08-26 16:19] VITALS: BMI 29.6
== END ==
LOC: AMB 04:13
PROVIDERS: ATTEND Nurse Practitioner
DX: S12.000A Unspecified displaced fracture of first cervical vertebra, initial encounter for closed fracture (principal)
CPT/HCPCS: A0425; A0428

== ENCOUNTER → 2018-03-01 | Outpatient (CLI) | payer MEDICARE, MEDICAID ==
[2017-08-26 16:19] VITALS: BMI 29.6
[~2018-03-01] MED LIST changes: +APIX5TAB PO
[2018-03-01 15:08] LABS: PLATELET COUNT, AUTOMATED 348 K/uL (150-450)
== END ==
LOC: LAB 14:30
PROVIDERS: ATTEND Internal Medicine Nephrology
DX: I12.9 Hypertensive chronic kidney disease with stage 1 through stage 4 chronic kidney disease, or unspecified chronic kidney disease (principal); N18.3 Chronic kidney disease, stage 3 (moderate)
CPT/HCPCS: 36415; 82040; 82247; 82310; 82374; 82435; 82565; 82947; 84075; 84100; 84132; 84155; 84295; 84450; 84460; 84520; 85025

== ENCOUNTER → 2018-04-01 | Outpatient (REF) | payer MEDICARE, MEDICAID ==
[2017-08-26 16:19] VITALS: BMI 29.6
[~2018-04-01] MED LIST changes: +CIPR-344 PO
== END ==
LOC: ZZSENDIN 13:07
PROVIDERS: ATTEND Internal Medicine Nephrology
DX: I12.9 Hypertensive chronic kidney disease with stage 1 through stage 4 chronic kidney disease, or unspecified chronic kidney disease (principal); N18.2 Chronic kidney disease, stage 2 (mild)
CPT/HCPCS: 82570; 84156

== ENCOUNTER → 2018-04-01 | Outpatient (CLI) | payer MEDICARE, MEDICAID ==
[2017-08-26 16:19] VITALS: BMI 29.6
== END ==
LOC: LAB 13:52
PROVIDERS: ATTEND Emergency Medicine
DX: R82.90 Unspecified abnormal findings in urine (principal)
CPT/HCPCS: 81001; 87077; 87088; 87186

== ENCOUNTER → 2018-04-06 | Outpatient (CLI) | payer MEDICARE, MEDICAID ==
[2017-08-26 16:19] VITALS: BMI 29.6
[~2018-04-06] MED LIST changes: +FLU180SY11 IM; +META800T18 PO; +METH1TAB58 PO; +TIZA2CAP3 PO
== END ==
LOC: LAB 15:56
PROVIDERS: ATTEND Emergency Medicine
DX: M81.0 Age-related osteoporosis without current pathological fracture (principal)
CPT/HCPCS: 36415; 82306; 82310; 83970

== ENCOUNTER → 2018-04-19 | Outpatient (CLI) | payer MEDICARE, MEDICAID ==
[2017-08-26 16:19] VITALS: BMI 29.6
[~2018-04-19] MED LIST changes: +GADOBENATE 529MG/1ML 15ML VIAL IVP ONE
--- NOTE | 2018-04-19 16:27 | RADIOLOGY IMAGING REPORT ---
FACILITY: [facility] PATIENT NAME: Luciano Goldman : 1955 MR: [id number] V: [id number] EXAM DATE: [id number] ORDERING PHYSICIAN: ANA GOLDMAN TECHNOLOGIST: [place] [facility] [place] [place] : 1955 Visit/Account:[id number] Date of Sevice: 04/19/2018 EXAMINATION: MRI Brain without intravenous contrast MRI Brain with intravenous contrast HISTORY: Multiple sclerosis. COMPARISON: Brain MRI dated 11/05/2016. TECHNIQUE: Multi-planar, multi-sequence brain MRI was performed before and after IV gadolinium. CONTRAST: 15 mL of IV MultiHance FINDINGS: Brain volume: Normal. Sagittal midline structures: Negative. Ventricles: Negative. Acute ischemic changes: None. Hemorrhage: None. 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 Enhancement: Negative. [place]-white: Negative. White matter: Stable mild patchy T2/FLAIR hyperintensity in the cerebellar white matter. Stable mild to moderate patchy FLAIR hyperintensity in the periventricular, deep, and subcortical white matter. No abnormal enhancement or restricted diffusion. Vessels: Negative. Extra-axial: Negative. Calvarium / scalp: Negative. Skull base: Negative. Visualized sinuses / orbits: Rightward nasal septal deviation. Visualized upper neck: Negative. IMPRESSION: No significant change compared with 11/05/2016. Report Dictated By: Gildardo Cooper MD at 04/19/2018 4:16 PM Report E-Signed By: Gildardo Cooper MD at 04/19/2018 4:23 PM WSN:[id number]
== END ==
LOC: MRI 03:41
PROVIDERS: ATTEND Specialist
DX: G35 Multiple sclerosis (principal)
CPT/HCPCS: 70553; A9577

== ENCOUNTER → 2018-04-29 | Outpatient (CLI) | payer MEDICARE, MEDICAID ==
[2017-08-26 16:19] VITALS: BMI 29.6
[~2018-04-29] MED LIST changes: -GADOBENATE 529MG/1ML 15ML VIAL IVP ONE; +ROSU10TA5 PO
[2018-04-29 12:57] LABS: PLATELET COUNT, AUTOMATED 292 K/uL (150-450)
== END ==
LOC: LAB 12:11
PROVIDERS: ATTEND Specialist
DX: G35 Multiple sclerosis (principal); Z79.899 Other long term (current) drug therapy
CPT/HCPCS: 36415; 82040; 82247; 82310; 82374; 82435; 82565; 82784; 82947; 84075; 84132; 84155; 84295; 84450; 84460; 84520; 85025; 88184; 88185

== ENCOUNTER → 2018-05-17 | Outpatient (CLI) | payer MEDICARE, MEDICAID ==
[2017-08-26 16:19] VITALS: BMI 29.6
[~2018-05-17] MED LIST changes: +CLIN300C99 PO; +DOXY-179 PO
== END ==
LOC: LAB 11:25
PROVIDERS: ATTEND Nurse Practitioner Primary Care
DX: L03.019 Cellulitis of unspecified finger (principal)
CPT/HCPCS: 87070; 87077; 87186

== ENCOUNTER → 2018-05-19 | Outpatient (CLI) | payer MEDICARE, MEDICAID ==
[2017-08-26 16:19] VITALS: BMI 29.6
[2018-05-19 10:19] LABS: PLATELET COUNT, AUTOMATED 292 K/uL (150-450)
== END ==
LOC: LAB 10:01
PROVIDERS: ATTEND Nurse Practitioner Primary Care
DX: L03.012 Cellulitis of left finger (principal)
CPT/HCPCS: 36415; 85025

== ENCOUNTER 2018-05-31 09:52 | Outpatient (RCR) | payer MEDICARE, MEDICAID ==
[2017-08-26 16:19] VITALS: BMI 29.6
[2018-04-02 14:13] VITALS: BP 115/70
--- NOTE | 2018-04-03 19:49 | ONCOLOGY FOLLOW UP NOTE ---
EVENT DATE: April 02, 2018 DIAGNOSIS Chronic myelogenous leukemia (CML). CHIEF COMPLAINT Patient is here today for followup of his CML. ONCOLOGY HISTORY The patient is a 63-year-old male who was diagnosed for over a decade now with CML, in remission with Gleevec therapy. The patient is doing very well. He had some upset stomach from Gleevec, but patient overcame that by taking the drug at night prior to sleep, and this is helping him a lot. He was diagnosed with chronic myelogenous leukemia in 2006. He did not tolerate Tasigna in the past at 300 mg twice daily after switching from Gleevec to Tasigna because of the nausea and fluid retention, but he could not tolerate Tasigna at all, so he switched back to Gleevec and is doing fine with Gleevec and in complete molecular remission currently. HISTORY OF PRESENT ILLNESS The patient is here today for followup of his chronic myelogenous leukemia. Patient had stopped his treatment with Gleevec September 2017 because he went for stem cell therapy for his multiple sclerosis. He got patchy improvement of his multiple sclerosis. He is complaining of generalized muscle aches. He has also some nasal discharge. 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 PAST MEDICAL HISTORY 1. CML. 2. Multiple sclerosis. 3. Chronic renal insufficiency. 4. Neurogenic bladder. PAST SURGICAL HISTORY Four spinal surgeries in the past. SOCIAL HISTORY The patient is . He lives with his . He was born and raised in [place]. 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 He does not smoke. He denies any use of alcohol. FAMILY HISTORY Noncontributory. CURRENT MEDICATIONS 1. Zofran 8 mg q.12 hours p.r.n. for nausea. 2. Potassium chloride 10 mEq daily. 3. Calcium citrate 200 mg daily. 4. Magnesium 100 mg daily. 5. [place]-3 fatty acids 500 mg capsule, two capsules daily. 6. Tylenol 500 mg q.4-6 hours p.r.n. 7. Pramipexole dihydrochloride 1 mg daily. 8. Amrix 15 mg daily. 9. Zolpidem 10 mg at bedtime. 10. Vitamin D3 at 1000 units daily. 11. Gleevec 400 mg daily. 12. Vitamin B complex one capsule daily. 13. Baclofen 2000 mcg continuous intrathecal injection. 14. Lasix 40 mg every morning. 15. Lexapro 20 mg daily. 16. Ampyra 10 mg twice daily. ALLERGIES PENICILLIN. REVIEW OF SYSTEMS CONSTITUTIONAL: No appetite or weight change. No fever, chills, or sweating. No recent infection. HEENT: Ears: No tinnitus or hearing problem. Nose: He has nasal discharge. Throat: No sore throat or mouth ulcers. Eyes: No diplopia or visual changes. RESPIRATORY: No shortness of breath. No cough, expectoration, or hemoptysis. CARDIOVASCULAR: No chest pain, orthopnea, or paroxysmal nocturnal dyspnea (PND). No edema. No palpitations. GASTROINTESTINAL: No nausea or vomiting. No diarrhea or constipation. No change in bowel movements. No heartburn or swallowing difficulties. No abdominal pain. No jaundice. No hematemesis, melena, or rectal bleeding. GENITOURINARY: No hematuria or dysuria. MUSCULOSKELETAL: He has generalized muscle and joint pains. NEUROLOGIC: His neuropathy is getting better after his stem cell therapy. No headaches or convulsions. HEMATOLOGIC/LYMPHATIC: No bleeding or easy bruising. No weakness or fatigue. No enlarged lymph nodes. SKIN: No skin rash or lumps. PSYCHIATRIC: No anxiety or depression. PHYSICAL EXAMINATION GENERAL: Looks stable. Well developed, well nourished, and in no acute distress. VITAL SIGNS: Blood pressure 115/70, pulse 75 per minute, respirations 16 per minute, temperature 97.1, pulse ox 96% on room air. HEENT: Head: Atraumatic. No sinus tenderness to palpation. Eyes: No icterus or conjunctivitis. Mouth and Throat: No oral thrush or mucositis. NECK: Supple. No cervical or supraclavicular lymphadenopathy. LUNGS: Clear to auscultation and percussion bilaterally. HEART: Regular rate and rhythm. No gallops, murmurs, clicks, or rubs. ABDOMEN: Soft and lax. No tenderness. No hepatosplenomegaly. No masses. EXTREMITIES: No cyanosis, clubbing, or edema. LYMPHATICS: No peripheral lymphadenopathy. NEUROLOGIC: Conscious, alert, and oriented times three. He has weakness due to his multiple sclerosis. He is wheelchair bound, but he is feeling better after stem cell therapy. PSYCHIATRIC: Mood and affect appear normal. SKIN: No skin rash, bruise, or purpuric eruption. DIAGNOSTIC DATA CBC showed white count 9.9, hemoglobin 16.3, hematocrit 48.2%, platelets 374,000. Chem panel totally normal except chloride 108. Quantitative PCR for BCR-ABL transcript showed increase from 3.4% to 37.68%. ASSESSMENT 1. Chronic myelogenous leukemia, on Gleevec 400 mg daily before. Patient stopped his treatment in September 2017 to go for stem cell therapy for his multiple sclerosis, and the patient received three infusions with much improvement of his multiple sclerosis, but unfortunately, his quantitative PCR for BCR-ABL transcript increased from 3.4% to 37.68%. I advised the patient to resume back Gleevec at 400 mg daily because with the relapse of his chronic myelogenous leukemia, he may go into blastic crisis, and he may develop acute leukemia which would be very difficult to control. Patient is going to check with his neurologist, Dr. Olea, to see if he would be able to have Gleevec now or not. I am planning to see him again in three months from now with CBC, chemistry panel, and quantitative PCR for BCR-ABL transcript. 2. Multiple sclerosis, chronic. It is getting better after stem cell therapy. 3. Chronic renal insufficiency with neurogenic bladder. PLAN 1. Gleevec 400 mg daily. 2. Patient to return in three months with CBC, chem panel, and quantitative PCR for BCR-ABL transcript. 3. Patient to contact us for any new concern or complaints. [facility]
[2018-05-24 09:50] VITALS: BP 98/67
[~2018-05-31 09:52] MED LIST changes: +DEXTROSE 5%(*) 100 ML BAG 100 ML IVPB PRN; +LIDOCAINE/SOD BICARB 8.4% SYR ID PRN; +NS(*) 0.9% 100 ML BAG 100 ML IVPB PRN
[2018-05-31 09:58] VITALS: BP 101/72
[2018-05-31] MEDS ORDERED: ACETAMINOPHEN 500 MG TAB PO PRN (11:05)
[2018-05-31] MEDS ORDERED: OCRELIZUMAB 300 MG/10 ML SDV 600 MG in NS(*) 0.9% 500 ML BAG 500 ML IVPB ONE (11:05)
[2018-05-31] MEDS ORDERED: methylPREDNIS SUCC 125 MG/2ML IVP PRN (11:10)
[2018-05-31] MEDS ORDERED: diphenhydrAMINE 50 MG/ML VIAL IVP PRN (11:10)
== END 2018-06-22 ==
LOC: SPU 09:52
PROVIDERS: ATTEND Internal Medicine Hematology
DX: C92.90 Myeloid leukemia, unspecified, not having achieved remission (principal); G35 Multiple sclerosis; N18.3 Chronic kidney disease, stage 3 (moderate); N31.9 Neuromuscular dysfunction of bladder, unspecified; R53.1 Weakness; R53.83 Other fatigue; Z79.899 Other long term (current) drug therapy
CPT/HCPCS: 36415; 96375; 96413; 96415; A9270; G0463; J1200; J2350; J2930; J7040; J7050; 82040; 82247; 82310; 82374; 82435; 82565; 82947; 84075; 84132; 84155; 84295; 84450; 84460; 84520; 85027; 99212

== ENCOUNTER → 2018-06-28 | Outpatient (CLI) | payer MEDICARE, MEDICAID ==
[2017-08-26 16:19] VITALS: BMI 29.6
[~2018-06-28] MED LIST changes: -DEXTROSE 5%(*) 100 ML BAG 100 ML IVPB PRN; -LIDOCAINE/SOD BICARB 8.4% SYR ID PRN; -NS(*) 0.9% 100 ML BAG 100 ML IVPB PRN
== END ==
LOC: LAB 13:39
PROVIDERS: ATTEND Emergency Medicine
DX: R82.90 Unspecified abnormal findings in urine (principal)
CPT/HCPCS: 81001

== ENCOUNTER 2018-07-09 12:58 | Outpatient (RCR) | payer MEDICARE, MEDICAID ==
[2017-08-26 16:19] VITALS: BMI 29.6
[2018-06-28 15:38] LABS: PLATELET COUNT, AUTOMATED 354 K/uL (150-450)
[2018-07-09 13:13] VITALS: BP 116/73
--- NOTE | 2018-07-09 18:26 | [facility] ONCOLOGY NOTE ---
EVENT DATE: July 09, 2018 DIAGNOSIS Chronic myelogenous leukemia (CML). CHIEF COMPLAINT Patient is here today for followup of his CML. ONCOLOGY HISTORY The patient is a 63-year-old male who was diagnosed for over a decade now with CML, in remission with Gleevec therapy. The patient is doing very well. He had some upset stomach from Gleevec, but patient overcame that by taking the drug at night prior to sleep, and this is helping him a lot. He was diagnosed with chronic myelogenous leukemia in 2006. He did not tolerate Tasigna in the past at 300 mg twice daily after switching from Gleevec to Tasigna because of the nausea and fluid retention, but he could not tolerate Tasigna at all, so he switched back to Gleevec and is doing fine with Gleevec and in complete molecular remission currently. HISTORY OF PRESENT ILLNESS Patient is here today for followup of his chronic myelogenous leukemia. Patient stopped his treatment with Gleevec September 2017 because he went for stem cell therapy for his multiple sclerosis. He got some improvement in his multiple sclerosis after that procedure. He is currently complaining of cough with expectoration. He has some pain in the back and knees. He has tingling and numbness in the fingers and toes. PAST MEDICAL HISTORY 1. CML. 2. Multiple sclerosis. 3. Chronic renal insufficiency. 4. Neurogenic bladder. PAST SURGICAL HISTORY Four spinal surgeries in the past. SOCIAL HISTORY The patient is . He lives with his . He was born and raised in [place]. 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 He does not smoke. He denies any use of alcohol. FAMILY HISTORY Noncontributory. CURRENT MEDICATIONS 1. Zofran 8 mg q.12 hours p.r.n. for nausea. 2. Potassium chloride 10 mEq daily. 3. Calcium citrate 200 mg daily. 4. Magnesium 100 mg daily. 5. [place]-3 fatty acids 500 mg capsule, two capsules daily. 6. Tylenol 500 mg q.4-6 hours p.r.n. 7. Pramipexole dihydrochloride 1 mg daily. 8. Amrix 15 mg daily. 9. Zolpidem 10 mg at bedtime. 10. Vitamin D3 at 1000 units daily. 11. Gleevec 400 mg daily. 12. Vitamin B complex one capsule daily. 13. Baclofen 2000 mcg continuous intrathecal injection. 14. Lasix 40 mg every morning. 15. Lexapro 20 mg daily. 16. Ampyra 10 mg twice daily. ALLERGIES PENICILLIN. REVIEW OF SYSTEMS CONSTITUTIONAL: No appetite or weight change. No fever, chills, or sweating. No recent infection. HEENT: Ears: No tinnitus or hearing problem. Nose: No nasal discharge or epistaxis. Throat: No sore throat or mouth ulcers. Eyes: No diplopia or visual changes. RESPIRATORY: No shortness of breath. Patient has cough with expectoration. No hemoptysis. CARDIOVASCULAR: No chest pain, orthopnea, or paroxysmal nocturnal dyspnea (PND). No edema. No palpitations. GASTROINTESTINAL: No nausea or vomiting. No diarrhea or constipation. No change in bowel movements. No heartburn or swallowing difficulties. No abdominal pain. No jaundice. No hematemesis, melena, or rectal bleeding. GENITOURINARY: No hematuria or dysuria. MUSCULOSKELETAL: He has pain in the back and knees. NEUROLOGICAL: He has tingling and numbness in the fingers and toes. No headaches or convulsions. HEMATOLOGIC/LYMPHATIC: No bleeding or easy bruising. No weakness or fatigue. No enlarged lymph nodes. SKIN: No skin rash or lumps. PSYCHIATRIC: No anxiety or depression. PHYSICAL EXAMINATION GENERAL: Looks stable. Well developed, well nourished, and in no acute distress. VITAL SIGNS: Blood pressure 116/73, pulse 71 per minute, respirations 16 per minute, temperature 97.8, pulse ox 97% on room air. HEENT: Head: Atraumatic. No sinus tenderness to palpation. Eyes: No icterus or conjunctivitis. Mouth and Throat: No oral thrush or mucositis. NECK: Supple. No cervical or supraclavicular lymphadenopathy. LUNGS: Clear to auscultation and percussion bilaterally. HEART: Regular rate and rhythm. No gallops, murmurs, clicks, or rubs. ABDOMEN: Soft and lax. No tenderness. No hepatosplenomegaly. No masses. EXTREMITIES: No cyanosis, clubbing, or edema. LYMPHATICS: No peripheral lymphadenopathy. NEUROLOGICAL: He is conscious, alert, and oriented times three. He has weakness due to his multiple sclerosis. He is wheelchair bound. PSYCHIATRIC: Mood and affect appear normal. SKIN: No skin rash, bruise, or purpuric eruption. DIAGNOSTIC DATA CBC showed white count 7.4, hemoglobin 17, hematocrit 48.5, platelets 354,000. Chem panel totally normal except chloride 109 and creatinine 1.3. Quantitative PCR for BCR-ABL rearrangement showed improvement in the level after resuming Gleevec. It dropped from 37.66% to 0.73%. ASSESSMENT 1. Chronic myelogenous leukemia, on Gleevec 400 mg daily. Patient stopped his Gleevec in September 2017 to go for stem cell therapy for his multiple sclerosis, and the patient received three infusions with improvement of his multiple sclerosis, but unfortunately, his quantitative PCR for BCR-ABL transcript increased from 3.4% to 37.68%. Patient was put back on Gleevec in March at 400 mg daily, and his current quantitative PCR showed good response, and the PCR-ABL transcript dropped from 37.68% to 0.73%. I am planning to continue Gleevec therapy at 400 mg daily. I will see him in three months with CBC, chemistry panel, and quantitative PCR for PCR-ABL transcript. 2. Multiple sclerosis, chronic. It is getting better after stem cell therapy. 3. Chronic renal insufficiency with neurogenic bladder. PLAN 1. Gleevec 400 mg daily. 2. Patient to return in three months with CBC, chem panel, and quantitative PCR for BCR-ABL transcript. 3. Patient to contact us for any new concern or complaints. [facility]
[2018-07-13] MEDS ORDERED: METH1TAB58 PO (14:37)
[2018-07-13] MEDS ORDERED: LEVO750T44 PO (16:19)
[2018-07-15] MEDS ORDERED: APIX5TAB PO (16:26)
[2018-07-19] MEDS ORDERED: POTA-53 PO (13:29)
[2018-07-19] MEDS ORDERED: LEVO750T44 PO (17:44)
[2018-07-27] MEDS ORDERED: FURO-45 PO (09:31)
[2018-07-27] MEDS ORDERED: FLUC200T52 PO (09:56)
[2018-08-13] MEDS ORDERED: NITR-57 PO (10:18)
[2018-08-25] MEDS ORDERED: POTA-53 PO (14:24)
[2018-08-25] MEDS ORDERED: FURO-45 PO (14:24)
[2018-09-01] MEDS ORDERED: CALC-640 PO (11:51)
[2018-09-01] MEDS ORDERED: ASCO-182 PO (11:53)
[2018-09-01] MEDS ORDERED: NABU-1 PO (11:53)
[2018-09-01] MEDS ORDERED: CYAN500T38 PO (11:53)
[2018-09-01] MEDS ORDERED: OCRE300V IV (12:10)
[2018-09-02] MEDS ORDERED: POTA-53 PO (10:54)
[2018-09-02] MEDS ORDERED: FURO-45 PO (10:54)
== END 2018-10-03 ==
LOC: ONC 12:58
PROVIDERS: ATTEND Internal Medicine Hematology
DX: C92.11 Chronic myeloid leukemia, BCR/ABL-positive, in remission (principal); G35 Multiple sclerosis; N18.3 Chronic kidney disease, stage 3 (moderate); M54.9 Dorsalgia, unspecified; Z79.899 Other long term (current) drug therapy
CPT/HCPCS: 36415; G0463; 82040; 82247; 82310; 82374; 82435; 82565; 82947; 84075; 84132; 84155; 84295; 84450; 84460; 84520; 85025; 99212

== ENCOUNTER → 2018-07-13 | Outpatient (REF) | payer MEDICARE, MEDICAID ==
[2017-08-26 16:19] VITALS: BMI 29.6
[~2018-07-13] MED LIST changes: +LEVO750T44 PO
== END ==
LOC: ZZSENDIN 14:56
PROVIDERS: ATTEND Emergency Medicine
DX: N39.0 Urinary tract infection, site not specified (principal)
CPT/HCPCS: 81001

== ENCOUNTER 2018-07-19 15:07 | Emergency (ER) | payer MEDICARE, MEDICAID ==
[2017-08-26 16:19] VITALS: BMI 29.6
[~2018-07-19 15:07] MED LIST changes: -FLUC200T52 PO
--- NOTE | 2018-07-19 15:16 | ER Report ---
History and Physical Time Seen By MD: 15:16 HPI/ROS CHIEF COMPLAINT: Urinary symptoms HISTORY OF PRESENT ILLNESS: This is a 63-year-old male presents to the emergency department via EMS for urinary symptoms. The patient has a history of MS, gabby quent urinary tract infections, has been working with his primary care provider for chronic UTIs, finished course of Levaquin yesterday for UTI. He does have a suprapubic catheter that is changed twice a month, this current catheter was changed last Thursday. Patient also complaints of double vision, he states this is happened several times over the last several weeks. He also states that the double vision seems to coincide with his urinary symptoms, he thinks this does exacerbate the MS causing the double vision. 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 No chest pain or shortness of breath. No fevers however he does have aches in his joints. No rashes. Denies headache. REVIEW OF SYSTEMS: Constitutional: As above. Eyes: No discharge. ENT: No sore throat. Cardiovascular: No chest pain, no palpitations. Respiratory: No cough, no shortness of breath. Gastrointestinal: No abdominal pain, no vomiting. Genitourinary: As above. Musculoskeletal: No back pain. Skin: No rashes. Neurological: As above. Allergies: Coded Allergies: Penicillins (Verified Allergy, Intermediate, HIVES, 08/25/17) Home Meds Active Scripts Levofloxacin 750 Mg Tab (LEVAQUIN 750 MG TAB) 750 Mg Tablet, 750 MG PO QDAY for 4 Days, #4 TAB 0 Refills Prov:DEANDRA CORBIN ENGINEER TECHNICAL STAFF-BC 07/19/18 Potassium Chloride (POTASSIUM CHLORIDE) 10 Meq Tab.er.prt, 10 MEQ PO BID, #180 TAB 3 Refills Prov:JC MEEHAN MD 07/19/18 Apixaban (ELIQUIS) 5 Mg Tablet, 5 MG PO BID, #180 TAB 3 Refills Prov:JC MEEHAN MD 07/15/18 Levofloxacin 750 Mg Tab (LEVAQUIN 750 MG TAB) 750 Mg Tablet, 750 MG PO DAILY, #5 TAB 0 Refills Prov:JC MEEHAN MD 07/13/18 Methenamine Hippurate (METHENAMINE HIPPURATE) 1 Gm Tablet, 1 GM PO DAILY for UTI for 30 Days, #30 CAP 6 Refills Take one pill by mouth daily with vitamin C Prov:JC MEEHAN MD 07/13/18 Meloxicam (MELOXICAM) 15 Mg Tablet, 15 MG PO QDAY, #90 TAB 3 Refills Prov:JC MEEHAN MD 05/27/18 Doxycycline Hyclate (DOXYCYCLINE HYCLATE) 100 Mg Tablet, 100 MG PO BID, #20 TAB Prov:AMERICO CRAFT MD 05/20/18 Clindamycin Hcl (CLINDAMYCIN HCL) 300 Mg Capsule, 1 TAB PO TID for 10 Days, #30 CAPSULE 0 Refills Prov:EUN GURROLA DNP, ENGINEER TECHNICAL STAFF-BC 05/17/18 Rosuvastatin Calcium (Rosuvastatin Calcium) 10 Mg Tablet, 1 TAB PO DAILY, #30 TAB 11 Refills Prov:JC MEEHAN MD 04/28/18 Reported Medications Imatinib Mesylate (GLEEVEC) 400 Mg Tab, 400 MG PO DAILY, TAB 04/05/18 Zolpidem Tartrate (ZOLPIDEM TARTRATE) 10 Mg Tablet, 1 TAB PO QHS 12/28/17 Omeprazole (OMEPRAZOLE) 40 Mg Capsule.dr, 40 MG PO BID, CAP 09/03/17 Baclofen (GABLOFEN) 50 Mcg/1 Ml Disp.syrin, 50 MCG IT 09/03/17 Dalfampridine (AMPYRA) 10 Mg Tabcr, 10 MG PO Q12H 09/03/17 Melatonin (MELATONIN) 5 Mg Tablet, 5 MG PO QHS 09/03/17 Cholecalciferol (Vitamin D3) (VITAMIN D3) 2,000 Unit Tablet, 2000 UNIT PO BID 07/20/16 Pramipexole Di-Hcl (PRAMIPEXOLE DIHYDROCHLORIDE) 1 Mg Tablet, 1 MG PO HS 07/20/16 Magnesium Citrate (MAGNESIUM CITRATE) 100 Mg Tablet, 500 MG PO DAILY 07/20/16 Furosemide (FUROSEMIDE) 20 Mg Tablet, 1-2 TAB PO DAILY, TAB 07/20/16 Escitalopram Oxalate (ESCITALOPRAM OXALATE) 20 Mg Tablet, 20 MG PO QDAY 07/20/16 Calcium Citrate/Vitamin D3 (Calcium Citrate +Vit D3 Tablet) 200 Mg Calcium-250 Unit Tablet 07/20/16 Discontinued Scripts Sulfamethoxazole/Trimet 800-160 Mg Tab (BACTRIM DS TABLET) 1 Each Tablet, 1 TAB PO Q12H, #14 TAB Prov:JC MEEHAN MD 06/28/18 Tizanidine Hcl (TIZANIDINE HCL) 2 Mg Capsule, 2 MG PO TID for Muscle Relaxant, #20 CAPSULE Prov:JC MEEHAN MD 04/07/18 Past Medical/Surgical History The patient has a past medical and surgical history of MS, headaches, pulmonary emboli, pneumonia, diverticulitis, colonoscopy, vasectomy, uric tract infection, neurogenic bladder, suprapubic catheter, arthritis, back surgery with fusion, chronic back pain, leukemia. Reviewed Nurses Notes: Yes Hx Smoking: No Smoking Status: Never Smoker Exposure to Second Hand Smoke?: No Hx Substance Use Disorder: No Hx Alcohol Use: Yes Constitutional Vital Sign - Last 24 Hours 07/19/18 07/19/18 07/19/18 07/19/18 15:18 16:00 16:30 17:00 Temp 97.9 Pulse 74 75 81 66 Resp 18 B/P (MAP) 119/74 110/62 (78) 98/68 (78) 93/57 (69) Pulse Ox 92 91 92 89 O2 Delivery Room Air 07/19/18 07/19/18 17:30 17:30 Pulse 62 62 B/P (MAP) 94/56 (69) 94/56 (69) Pulse Ox 91 91 Physical Exam General Appearance: The patient is alert, has no immediate need for airway protection and no signs of toxicity. Eyes: Pupils equal and round no pallor or injection. ENT, Mouth: Mucous membranes are moist. Respiratory: There are no retractions, lungs are clear to auscultation. Cardiovascular: Regular rate and rhythm, no murmurs, clicks or rubs. Gastrointestinal: Abdomen is soft and non tender, no masses, hypoactive bowel sounds. Neurological: Alert and oriented 4. At baseline for moving extremities consistent with history of MS, no focal neuro deficits. Skin: Warm and dry, no rashes. Suprapubic catheter site intact, no erythema or skin breakdown. Musculoskeletal: Neck is supple non tender. Extremities are nontender, nonswollen and have full range of motion. DIFFERENTIAL DIAGNOSIS: After history and physical exam differential diagnosis was considered for viral syndrome, influenza, urosepsis, and a tract infection, pneumonia, bronchitis, bowel instruction. Medical Decision Making Data Points Result Diagram: 07/19/18 1532 07/19/18 1522 Laboratory Hematology Test 07/19/18 15:22 07/19/18 15:32 07/19/18 15:35 07/19/18 15:40 Sodium Level 143 mmol/L (137-145) Potassium Level 4.0 mmol/L (3.5-5.0) Chloride Level 111 mmol/L (98-107) Carbon Dioxide Level 22 mmol/L (22-30) Blood Urea Nitrogen 18 mg/dl (9-21) Creatinine 1.10 mg/dl (0.66-1.25) Glomerular Filtration Rate Calc > 60.0 Random Glucose 92 mg/dl (75-110) Lactate 1.6 mmol/L (0.7-2.1) Calcium Level 9.4 mg/dl (8.4-10.2) Total Bilirubin 0.8 mg/dl (0.2-1.3) Aspartate Amino Transf (AST/SGOT) 38 U/L (0-35) Alanine Aminotransferase (ALT/SGPT) 28 U/L (0-56) Alkaline Phosphatase 74 U/L (0-126) Total Protein 6.1 g/dl (6.3-8.2) Albumin 3.7 g/dl (3.5-5.0) Red Blood Count 4.19 M/uL (4.00-5.60) Mean Corpuscular Volume 104.3 fL (80.0-96.0) Mean Corpuscular Hemoglobin 36.2 pg (26.0-33.0) Mean Corpuscular Hemoglobin Concent 34.8 g/dL (32.0-36.0) Red Cell Distribution Width 16.0 % (11.5-14.5) Mean Platelet Volume 9.6 fL (7.2-11.1) Neutrophils (%) (Auto) 84.4 % (39.4-72.5) Lymphocytes (%) (Auto) 7.7 % (17.6-49.6) Monocytes (%) (Auto) 6.4 % (4.1-12.4) Eosinophils (%) (Auto) 1.0 % (0.4-6.7) Basophils (%) (Auto) 0.5 % (0.3-1.4) Nucleated RBC Relative Count (auto) 0.0 /100WBC Neutrophils # (Auto) 8.3 K/uL (2.0-7.4) Lymphocytes # (Auto) 0.8 K/uL (1.3-3.6) Monocytes # (Auto) 0.6 K/uL (0.3-1.0) Eosinophils # (Auto) 0.1 K/uL (0.0-0.5) Basophils # (Auto) 0.0 K/uL (0.0-0.1) Nucleated RBC Absolute Count (auto) 0.00 K/uL Influenza Virus Type A (PCR) Negative (NEGATIVE) Influenza Virus Type B (PCR) Negative (NEGATIVE) Urine Color Straw Urine Clarity Slightly-cloudy Urine pH 5.0 pH (4.8-9.5) Urine Specific [place] 1.010 Urine Protein Negative mg/dL (NEGATIVE) Urine Glucose (UA) Negative mg/dL (NEGATIVE) Urine Ketones Trace mg/dL (NEGATIVE) Urine Blood Negative (NEGATIVE) Urine Nitrite Negative (NEGATIVE) Urine Bilirubin Negative (NEGATIVE) Urine Urobilinogen Negative mg/dL (0.2-1.9) Urine Leukocyte Esterase Large (NEGATIVE) Urine RBC None /HPF (0-2/HPF) Urine WBC 70 /HPF (0-5/HPF) Urine Squamous Epithelial Cells None /LPF (NONE-FEW) Urine Bacteria Few /HPF (NONE-FEW) Urine Mucus Few /HPF (NONE-FEW) Urine Yeast (Budding) Few /HPF Chemistry Test 07/19/18 15:22 07/19/18 15:32 07/19/18 15:35 07/19/18 15:40 Glomerular Filtration Rate Calc > 60.0 Lactate 1.6 mmol/L (0.7-2.1) Calcium Level 9.4 mg/dl (8.4-10.2) Total Bilirubin 0.8 mg/dl (0.2-1.3) Aspartate Amino Transf (AST/SGOT) 38 U/L (0-35) Alanine Aminotransferase (ALT/SGPT) 28 U/L (0-56) Alkaline Phosphatase 74 U/L (0-126) Total Protein 6.1 g/dl (6.3-8.2) Albumin 3.7 g/dl (3.5-5.0) White Blood Count 9.8 k/uL (4.5-11.0) Red Blood Count 4.19 M/uL (4.00-5.60) Hemoglobin 15.2 g/dL (14.0-18.0) Hematocrit 43.7 % (42.0-52.0) Mean Corpuscular Volume 104.3 fL (80.0-96.0) Mean Corpuscular Hemoglobin 36.2 pg (26.0-33.0) Mean Corpuscular Hemoglobin Concent 34.8 g/dL (32.0-36.0) Red Cell Distribution Width 16.0 % (11.5-14.5) Platelet Count 285 K/uL (150-450) Mean Platelet Volume 9.6 fL (7.2-11.1) Neutrophils (%) (Auto) 84.4 % (39.4-72.5) Lymphocytes (%) (Auto) 7.7 % (17.6-49.6) Monocytes (%) (Auto) 6.4 % (4.1-12.4) Eosinophils (%) (Auto) 1.0 % (0.4-6.7) Basophils (%) (Auto) 0.5 % (0.3-1.4) Nucleated RBC Relative Count (auto) 0.0 /100WBC Neutrophils # (Auto) 8.3 K/uL (2.0-7.4) Lymphocytes # (Auto) 0.8 K/uL (1.3-3.6) Monocytes # (Auto) 0.6 K/uL (0.3-1.0) Eosinophils # (Auto) 0.1 K/uL (0.0-0.5) Basophils # (Auto) 0.0 K/uL (0.0-0.1) Nucleated RBC Absolute Count (auto) 0.00 K/uL Influenza Virus Type A (PCR) Negative (NEGATIVE) Influenza Virus Type B (PCR) Negative (NEGATIVE) Urine Color Straw Urine Clarity Slightly-cloudy Urine pH 5.0 pH (4.8-9.5) Urine Specific [place] 1.010 Urine Protein Negative mg/dL (NEGATIVE) Urine Glucose (UA) Negative mg/dL (NEGATIVE) Urine Ketones Trace mg/dL (NEGATIVE) Urine Blood Negative (NEGATIVE) Urine Nitrite Negative (NEGATIVE) Urine Bilirubin Negative (NEGATIVE) Urine Urobilinogen Negative mg/dL (0.2-1.9) Urine Leukocyte Esterase Large (NEGATIVE) Urine RBC None /HPF (0-2/HPF) Urine WBC 70 /HPF (0-5/HPF) Urine Squamous Epithelial Cells None /LPF (NONE-FEW) Urine Bacteria Few /HPF (NONE-FEW) Urine Mucus Few /HPF (NONE-FEW) Urine Yeast (Budding) Few /HPF Urinalysis Test 07/19/18 15:40 Urine Color Straw Urine Clarity Slightly-cloudy Urine pH 5.0 pH (4.8-9.5) Urine Specific [place] 1.010 Urine Protein Negative mg/dL (NEGATIVE) Urine Glucose (UA) Negative mg/dL (NEGATIVE) Urine Ketones Trace mg/dL (NEGATIVE) Urine Blood Negative (NEGATIVE) Urine Nitrite Negative (NEGATIVE) Urine Bilirubin Negative (NEGATIVE) Urine Urobilinogen Negative mg/dL (0.2-1.9) Urine Leukocyte Esterase Large (NEGATIVE) Urine RBC None /HPF (0-2/HPF) Urine WBC 70 /HPF (0-5/HPF) Urine Squamous Epithelial Cells None /LPF (NONE-FEW) Urine Bacteria Few /HPF (NONE-FEW) Urine Mucus Few /HPF (NONE-FEW) Urine Yeast (Budding) Few /HPF EKG/Imaging Imaging Location: [facility] - [place] Patient: Luciano Goldman : 1955 Visit/Account:[id number] Date of Sevice: 07/19/2018 EXAMINATION: Head CT without intravenous contrast HISTORY: Double vision. History of multiple sclerosis. COMPARISON: MRI of the brain from 12/18/2017. CT of the head from 12/28/2017. TECHNIQUE: Contiguous axial images were obtained from the skull base to the vertex without intravenous contrast. Sagittal and coronal reformatted images are also submitted. One of the following dose optimization techniques was utilized in the performance of this exam: Automated exposure control; adjustment of the mA and/o r kV according to the patient's size; or use of an iterative reconstruction technique. Specific details can be referenced in the facility's radiology CT exam operational policy. FINDINGS: Brain and intracranial structures: Ventricles, sulci, and cisterns are normal in size. Zabala-white matter differentiation is maintained. Small hypoattenuating foci scattered within the cerebral white matter, similar to the previous examination. No midline shift, acute hemorrhage, or evidence of acute infarct. Unchanged 1 cm calcified meningioma along the floor of the anterior cranial fossa centered to the right of the midline at the cribriform recess. Vessels: Mild calcification of the carotid siphons. Calvarium / scalp: Negative. Skull base / visualized face: Negative. Visualized sinuses / orbits: Mild mucosal thickening in the paranasal sinuses. IMPRESSION: No CT evidence of acute intracranial pathology. Patchy hypoattenuating foci scattered within the cerebral white matter, similar to previous examinations in keeping with history of multiple sclerosis. No obvious new lesions are identified. Please note that MRI is more sensitive for detection of demyelinating lesions. Report Dictated By: Wing Limon MD at 07/19/2018 4:49 PM Report E-Signed By: Wing Limon MD at 07/19/2018 5:00 PM WSN:[id number] ED Course/Re-evaluation Clinical Indication for ER IV: Hydration, IV Access ED Course The patient was admitted to room via EMS. History and physical were obtained. Differential diagnoses were considered. An IV was started. A CBC, CMP, lactate were obtained. A 1 L normal saline bolus was given.CBC with normal white count, MCV 104.3, this is slowly increasing over the last couple years, with a left shift, chemistry unremarkable, catheter UA showing negative blood, large leukocyte esterase and 70 white blood cells and no epithelial cells, with yeast. As the patient did have double vision, although he states this is been recurrent and seems to be consistent with his MS and infection, we agreed to CT brain whi ch was negative for any acute findings. I reviewed the results with the patient, as his blood pressure and vital signs were not abnormal, see office was concerned of urosepsis, he did not fit the urosepsis criteria, I did however discuss the case with Dr. Peña, we agreed that continuation of the Levaquin for another 5 days, sending the urine out for culture and treating the yeast would be appropriate and having him follow-up with his primary care provider. Patient was given 1 dose of Levaquin and 1 dose of Diflucan in the ER. The rest of the [facility] prescription was patient's pharmacy. There was no need for admission at this time, patient was agreeable and will follow-up with his primary care provider. I did tell patient that she could have an underlying viral illness in addition to his urinary tract infection which is causing some of the aches and chills. Patient also had a normal lactate. 07/19/2018 5:48:39 pm I did review the case with Dr. Peña, he agrees that continuing the antibiotic, culture and diflucan are appropriate course for Mr. Goldman as it does appear his UTI is improving, other than the yeast. Decision to Disposition Date: Jul 19, 2018 Decision to Disposition Time: 17:41 Depart Departure Latest Vital Signs Vital Signs Date Time Temp Pulse Resp B/P (MAP) Pulse Ox O2 Delivery O2 Flow Rate FiO2 07/19/18 17:30 62 94/56 (69) 91 07/19/18 15:18 97.9 18 Room Air Impression: Primary Impression: Urinary tract infection Condition: Improved Disposition: HOME OR SELF-CARE Referrals: JC MEEHAN MD (PCP) 5 Days New Scripts Levofloxacin 750 Mg Tab (LEVAQUIN 750 MG TAB) 750 Mg Tablet 750 MG PO QDAY for 4 Days, #4 TAB 0 Refills Prov: DEANDRA CORBIN-JESSENIA 07/19/18 Patient Instructions: Catheter-associated Urinary Tract Infection (ED) Additional Instructions: I believe the Levaquin is working, please continue with the Levaquin prescription I sent to your pharmacy. It appears you may have a yeast infection as well, we did give you one dose of diflucan today in addition to one dose of Levaquin. Please contact Dr. Gunter office tomorrow and schedule a follow up appointment within the next 2-3 days for reevaluation. You blood work, CT and vital signs all looked ok today, no indication of sepsis. Please continue drinking plenty of water. Get plenty of rest. Please have home health continue to clean and closely monitor the cath site. There is no sign of infection surrounding the site, it does look healthy today. Return to the ED for any other concerns or worsening symptoms. Problem Qualifiers Primary Impression: Urinary tract infection Urinary tract infection type: catheter-associated UTI Indwelling urinary catheter type: cystostomy catheter Encounter type: initial encounter Qualified Codes: T83.510A - Infection and inflammatory reaction due to cystostomy catheter, initial encounter; N39.0 - Urinary tract infection, site not specified DEANDRA CORBIN ENGINEER TECHNICAL STAFF-BC Jul 19, 2018 15:16
[2018-07-19] MEDS ORDERED: NS(*) 0.9% 1000 ML BAG 1,000 ML IV ONE (15:35)
[2018-07-19 15:55] LABS: PLATELET COUNT, AUTOMATED 285 K/uL (150-450)
--- NOTE | 2018-07-19 17:06 | RADIOLOGY IMAGING REPORT ---
FACILITY: [facility] PATIENT NAME: Luciano Goldman : 1955 MR: [id number] V: [id number] EXAM DATE: ORDERING PHYSICIAN: DEANDRA CORBIN TECHNOLOGIST: Location: [facility] - [place] Patient: Luciano Goldman : 1955 Visit/Account:[id number] Date of Sevice: 07/19/2018 EXAMINATION: Head CT without intravenous contrast HISTORY: Double vision. History of multiple sclerosis. COMPARISON: MRI of the brain from 12/18/2017. CT of the head from 12/28/2017. TECHNIQUE: Contiguous axial images were obtained from the skull base to the vertex without intraven ous contrast. Sagittal and coronal reformatted images are also submitted. One of the following dose optimization techniques was utilized in the performance of this exam: Autom ated exposure control; adjustment of the mA and/or kV according to the patient's size; or use of an i terative reconstruction technique. Specific details can be referenced in the facility's radiology C T exam operational policy. FINDINGS: Brain and intracranial structures: Ventricles, sulci, and cisterns are normal in size. Zabala-white ma tter differentiation is maintained. Small hypoattenuating foci scattered within the cerebral white ma tter, similar to the previous examination. No midline shift, acute hemorrhage, or evidence of acute infarct. Unchanged 1 cm calcified meningioma along the floor of the anterior cranial fossa centered to the rig ht of the midline at the cribriform recess. Vessels: Mild calcification of the carotid siphons. Calvarium / scalp: Negative. Skull base / visualized face: Negative. Visualized sinuses / orbits: Mild mucosal thickening in the paranasal sinuses. IMPRESSION: No CT evidence of acute intracranial pathology. Patchy hypoattenuating foci scattered within the cerebral white matter, similar to previous examinati ons in keeping with history of multiple sclerosis. No obvious new lesions are identified. Please note that MRI is more sensitive for detection of demyelinating lesions. Report Dictated By: Wing Limon MD at 07/19/2018 4:49 PM Report E-Signed By: Wing Limon MD at 07/19/2018 5:00 PM WSN:[id number]
[2018-07-19 17:30] VITALS: BP 94/56
[2018-07-19] MEDS ORDERED: FLUCONAZOLE 150 MG TAB PO ONE (17:40)
[2018-07-19] MEDS ORDERED: LEVOFLOXACIN 750 MG TAB PO ONE (17:40)
[2018-07-19] MEDS ORDERED: LEVO750T44 PO (17:44)
== END 2018-07-19 18:51 | disposition home or self-care (01) ==
LOC: ER 15:27
DX: T83.510A Infection and inflammatory reaction due to cystostomy catheter, initial encounter (principal); N39.0 Urinary tract infection, site not specified
CPT/HCPCS: 70450; 81001; 83605; 85025; 87088; 87502; 99284; A9270; J7030; 82040; 82247; 82310; 82374; 82435; 82565; 82947; 84075; 84132; 84155; 84295; 84450; 84460; 84520

== ENCOUNTER → 2018-07-19 | Outpatient (CLI) | payer MEDICARE, MEDICAID ==
[2017-08-26 16:19] VITALS: BMI 29.6
[~2018-07-19] MED LIST changes: +FLUC200T52 PO
== END ==
LOC: AMB 14:39
PROVIDERS: ATTEND Nurse Practitioner
DX: R53.1 Weakness (principal); R11.10 Vomiting, unspecified
CPT/HCPCS: A0425; A0429

== ENCOUNTER → 2018-07-26 | Outpatient (CLI) | payer MEDICARE, MEDICAID ==
[2017-08-26 16:19] VITALS: BMI 29.6
[~2018-07-26] MED LIST changes: +FLUC200T52 PO
[2018-07-26 17:12] LABS: PLATELET COUNT, AUTOMATED 233 K/uL (150-450)
== END ==
LOC: LAB 16:39
PROVIDERS: ATTEND Emergency Medicine
DX: N39.0 Urinary tract infection, site not specified (principal); D75.89 Other specified diseases of blood and blood-forming organs
CPT/HCPCS: 36415; 81001; 82607; 83880; 85025; 87088

== ENCOUNTER → 2018-08-11 | Outpatient (REF) | payer MEDICARE, MEDICAID ==
[2017-08-26 16:19] VITALS: BMI 29.6
[~2018-08-11] MED LIST changes: +NITR-57 PO
== END ==
LOC: ZZSENDIN 14:06
PROVIDERS: ATTEND Emergency Medicine
DX: N39.0 Urinary tract infection, site not specified (principal); B96.89 Other specified bacterial agents as the cause of diseases classified elsewhere
CPT/HCPCS: 87077; 87088; 87186

== ENCOUNTER → 2018-08-13 | Outpatient (REF) | payer MEDICARE, MEDICAID ==
[2017-08-26 16:19] VITALS: BMI 29.6
[2018-08-13 15:37] LABS: PLATELET COUNT, AUTOMATED 268 K/uL (150-450)
== END ==
LOC: ZZSTITCHES 15:25
PROVIDERS: ATTEND Physician Assistant
DX: R53.83 Other fatigue (principal)
CPT/HCPCS: 82040; 82247; 82310; 82374; 82435; 82565; 82947; 84075; 84132; 84155; 84295; 84450; 84460; 84520; 85025

== ENCOUNTER → 2018-08-25 | Outpatient (REF) | payer MEDICARE, MEDICAID ==
[2017-08-26 16:19] VITALS: BMI 29.6
== END ==
LOC: ZZSENDIN 09:40
PROVIDERS: ATTEND Emergency Medicine
DX: N39.0 Urinary tract infection, site not specified (principal); B96.1 Klebsiella pneumoniae [K. pneumoniae] as the cause of diseases classified elsewhere
CPT/HCPCS: 81001; 87077; 87088; 87186

== ENCOUNTER → 2018-09-01 | Outpatient (CLI) | payer MEDICARE, MEDICAID ==
[2017-08-26 16:19] VITALS: BMI 29.6
[~2018-09-01] MED LIST changes: +ASCO-182 PO; +CALC-640 PO; +CYAN500T38 PO; +OCRE300V IV
== END ==
LOC: LAB 12:19
PROVIDERS: ATTEND Emergency Medicine
DX: R60.9 Edema, unspecified (principal)
CPT/HCPCS: 36415; 82310; 82374; 82435; 82565; 82947; 83735; 84132; 84295; 84443; 84520

== ENCOUNTER 2018-10-15 15:46 | Outpatient (RCR) | payer MEDICARE, MEDICAID ==
[2017-08-26 16:19] VITALS: BMI 29.6
[2018-10-05 10:50] VITALS: BP 117/81
[2018-10-05 10:52] LABS: PLATELET COUNT, AUTOMATED 302 K/uL (150-450)
[~2018-10-15 15:46] MED LIST changes: -CYAN500T38 PO; +CYAN500T39 PO; +MELA5TAB3 PO; -MELA5TAB6 PO
[2018-10-15 15:48] VITALS: BP 94/58
--- NOTE | 2018-10-15 21:27 | EL-TARAB[facility] ONCOLOGY NOTE ---
EVENT DATE: October 15, 2018 DIAGNOSIS Chronic myelogenous leukemia (CML). CHIEF COMPLAINT Patient is here today for followup of his CML. ONCOLOGY HISTORY The patient is a 63-year-old male who was diagnosed for over a decade now with CML, in remission with Gleevec therapy. The patient is doing very well. He had some upset stomach from Gleevec, but patient overcame that by taking the drug at night prior to sleep, and this is helping him a lot. He was diagnosed with chronic myelogenous leukemia in 2006. He did not tolerate Tasigna in the past at 300 mg twice daily after switching from Gleevec to Tasigna because of the nausea and fluid retention, but he could not tolerate Tasigna at all, so he switched back to Gleevec and is doing fine with Gleevec and in complete molecular remission currently. HISTORY OF PRESENT ILLNESS Patient is here today for followup of his chronic myelogenous leukemia. Patient stopped his treatment in September 2017 because he went for a procedure with stem cell for his multiple sclerosis, and his BCR-ABL transcript vanessa to 37.88. Then, the patient resumed his Gleevec after he finished his stem cell procedure, and his PCR actually is improving with each visit. He is complaining of stiff muscles because of his multiple sclerosis, but other than that, he does not have any other complaint today. PAST MEDICAL HISTORY 1. CML. 2. Multiple sclerosis. 3. Chronic renal insufficiency. 4. Neurogenic bladder. PAST SURGICAL HISTORY Four spinal surgeries in the past. SOCIAL HISTORY The patient is . He lives with his . He was born and raised in [place]. 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 He does not smoke. He denies any use of alcohol. FAMILY HISTORY Noncontributory. CURRENT MEDICATIONS 1. Zofran 8 mg q.12 hours p.r.n. for nausea. 2. Potassium chloride 10 mEq daily. 3. Calcium citrate 200 mg daily. 4. Magnesium 100 mg daily. 5. [place]-3 fatty acids 500 mg capsule, two capsules daily. 6. Tylenol 500 mg q.4-6 hours p.r.n. 7. Pramipexole dihydrochloride 1 mg daily. 8. Amrix 15 mg daily. 9. Zolpidem 10 mg at bedtime. 10. Vitamin D3 at 1000 units daily. 11. Gleevec 400 mg daily. 12. Vitamin B complex one capsule daily. 13. Baclofen 2000 mcg continuous intrathecal injection. 14. Lasix 40 mg every morning. 15. Lexapro 20 mg daily. 16. Ampyra 10 mg twice daily. ALLERGIES PENICILLIN. REVIEW OF SYSTEMS CONSTITUTIONAL: No appetite or weight change. No fever, chills, or sweating. No recent infection. HEENT: Ears: No tinnitus or hearing problem. Nose: No nasal discharge or epistaxis. Throat: No sore throat or mouth ulcers. Eyes: No diplopia or visual changes. RESPIRATORY: No shortness of breath. No cough, expectoration or hemoptysis. CARDIOVASCULAR: No chest pain, orthopnea, or paroxysmal nocturnal dyspnea (PND). No edema. No palpitations. GASTROINTESTINAL: No nausea or vomiting. No diarrhea or constipation. No change in bowel movements. No heartburn or swallowing difficulties. No abdominal pain. No jaundice. No hematemesis, melena, or rectal bleeding. GENITOURINARY: No hematuria or dysuria. MUSCULOSKELETAL: He has stiff muscles. NEUROLOGICAL: No tingling or numbness in the hands or feet. No headaches or convulsions. HEMATOLOGIC/LYMPHATIC: No bleeding or easy bruising. No weakness or fatigue. No enlarged lymph nodes. SKIN: No skin rash or lumps. PSYCHIATRIC: No anxiety or depression. PHYSICAL EXAMINATION GENERAL: Looks stable. Well developed, well nourished, and in no acute distress. VITAL SIGNS: Blood pressure 94/58, pulse 83 per minute, respirations 16 per minute, temperature 97.6, pulse ox 98% on room air. HEENT: Head: Atraumatic. No sinus tenderness to palpation. Eyes: No icterus or conjunctivitis. Mouth and Throat: No oral thrush or mucositis. NECK: Supple. No cervical or supraclavicular lymphadenopathy. LUNGS: Clear to auscultation and percussion bilaterally. HEART: Regular rate and rhythm. No gallops, murmurs, clicks, or rubs. ABDOMEN: Soft and lax. No tenderness. No hepatosplenomegaly. No masses. EXTREMITIES: No cyanosis, clubbing, or edema. LYMPHATICS: No peripheral lymphadenopathy. NEUROLOGICAL: He is conscious, alert, and oriented times three. He has weakness due to his multiple sclerosis, and he is wheelchair bound. PSYCHIATRIC: Mood and affect appear normal. SKIN: No skin rash, bruise, or purpuric eruption. DIAGNOSTIC DATA CBC showed a white count of 6.5, hemoglobin 15.9, hematocrit 46.9, platelets 302,000. Chem panel normal except AST 41. BCR-ABL quantitative PCR showed improvement, and the level of the transcript was 37.68, which dropped to 0.73, and currently it is 0.0855%. ASSESSMENT 1. Chronic myelogenous leukemia, on Gleevec 400 mg daily. Patient stopped Gleevec in September 2017 to have the stem cell therapy done for his multiple sclerosis, and the patient received three infusions with improvement of his multiple sclerosis, but unfortunately, his quantitative PCR for BCR-ABL transcript increased from 3.4% to 37.68%. Patient resumed the Gleevec again in March 2018 at 400 mg daily, and his quantitative PCR showed gradual response. It decreased from 37.68% to 0.73%, and currently it is 0.0855%. I am planning to continue the same treatment with Gleevec 400 mg daily. I will see the patient again in three months with CBC, chemistry panel, and quantitative PCR for BCR-ABL transcript. 2. Multiple sclerosis with some improvement after stem cell therapy. 3. Chronic renal insufficiency with neurogenic bladder. PLAN 1. Gleevec 400 mg daily. 2. Patient to return in three months with CBC, chem panel, and quantitative PCR for BCR-ABL. 3. Patient to contact us for any new concern or complaints. MTDD
[2018-10-27] MEDS ORDERED: TIZA2CAP3 PO (14:01)
[2018-12-07] MEDS ORDERED: TIZA2CAP3 PO (15:37)
== END 2019-01-03 ==
LOC: ONC 15:46
PROVIDERS: ATTEND Internal Medicine Hematology
DX: C92.10 Chronic myeloid leukemia, BCR/ABL-positive, not having achieved remission (principal); G35 Multiple sclerosis; N28.9 Disorder of kidney and ureter, unspecified; N31.9 Neuromuscular dysfunction of bladder, unspecified; Z79.899 Other long term (current) drug therapy
CPT/HCPCS: 36415; 85025; G0463; 82040; 82247; 82310; 82374; 82435; 82565; 82947; 84075; 84132; 84155; 84295; 84450; 84460; 84520; 99212

== ENCOUNTER → 2018-12-06 | Outpatient (CLI) | payer MEDICARE, MEDICAID ==
[2017-08-26 16:19] VITALS: BMI 29.6
[2018-12-06 14:36] LABS: PLATELET COUNT, AUTOMATED 290 K/uL (150-450)
== END ==
LOC: LAB 13:55
PROVIDERS: ATTEND Specialist
DX: G35 Multiple sclerosis (principal); Z79.899 Other long term (current) drug therapy; E55.9 Vitamin D deficiency, unspecified
CPT/HCPCS: 36415; 82040; 82247; 82306; 82310; 82374; 82435; 82565; 82784; 82947; 84075; 84132; 84155; 84295; 84450; 84460; 84520; 85025; 87798; 88184; 88185